=== PATIENT | female | born 1945 | race Caucasian/White ===

== ENCOUNTER 2020-03-28 12:01 | Outpatient (CLI) | payer MEDICARE, SELFPAY ==
--- NOTE | ~2020-03-28 | XR_ITS ---
EXAMINATION: XR abdomen obstructive series DATE: 03/28/2020 12:34 INDICATION: Low abdominal pain. TECHNIQUE: Upright and supine views of the abdomen on 3 radiographs were obtained. COMPARISON: Left hip radiographs 04/20/2016 FINDINGS: There are no dilated loops of bowel. There is a small volume of stool in the colon. No free intraperitoneal gas. Calcifications in the pelvis are chronic, consistent with phleboliths. IMPRESSION: 1. Normal bowel gas pattern. Reviewed, dictated and finalized at location A.
== END 2020-03-28 12:02 | disposition home or self-care (01) ==
LOC: ANHIMG 12:12
PROVIDERS: PCP Internal Medicine; Visit Provider Nurse Practitioner
DX: R10.30 Lower abdominal pain, unspecified (principal)
CPT/HCPCS: 74019

== ENCOUNTER 2020-06-13 09:47 | Outpatient (CLI) | payer MEDICARE, SELFPAY ==
--- NOTE | ~2020-06-13 | MM_ITS ---
EXAMINATION: MM screening [facility] BI w haider HISTORY: Screening mammogram TECHNIQUE: Craniocaudal and mediolateral oblique 3-D tomosynthesis images were obtained and synthetic 2-D images were generated. CAD analysis was submitted and interpreted. COMPARISON: 05/15/2019, 05/12/2018, 05/11/2017 BREAST PARENCHYMAL COMPOSITION: There are scattered areas of fibroglandular density. FINDINGS: There is no evidence of suspicious mass, calcification, or architectural distortion to sugg est malignancy in either breast. There has been no suspicious interval change. IMPRESSION: 1. No mammographic evidence of malignancy. 2. Recommend routine screening mammography in one year. BI-RADS Category 1: Negative Reviewed, dictated and finalized at location A.
--- NOTE | ~2020-06-13 | DEXA_ITS ---
Bone Density Report Name: Xochitl Lew Age: 74 Sex: Female Ethnicity: White Date of : 1945 Indication: postmenopausal; parental hip fracture; height loss; Referring Provider: Mely Lr Study: Bone densitometry was performed. Exam Date: June 13, 2020 Accession number: [id number] Bone Density: Region BMD T-score Z-score Classification AP Spine (L1-L4) 0.967 -0.7 1.7 Normal Femoral Neck (Left) 0.714 -1.2 0.8 Osteopenia Total Hip (Left) 0.849 -0.8 1.0 Normal Total Hip Bilateral Avg 0.883 -0.5 1.3 Normal Femoral Neck (Right) 0.727 -1.1 1.0 Osteopenia Total Hip (Right) 0.917 -0.2 1.6 Normal World Health Organization criteria for BMD impression classify patients as: Normal (T-score at or above -1.0), Osteopenia (T-score between -1.0 and -2.5), or Osteoporosis (T-score at or below -2.5). 10-year Fracture Risk(1): Major Osteoporotic Fracture 16% Hip Fracture 6.6% Reported Risk Factors: [place] (), Neck BMD=0.714, BMI=29.9, parental fracture (1) FRAX(R) Version 3.08. Fracture probability calculated for an untreated patient. Fracture probability may be lower if the patient has received treatment. Previous Exams: Region Exam Age BMD T-score BMD Change BMD Change Date g/cm2 vs Baseline vs Previous AP Spine(L1-L4) 06/13/2020 74 0.967 -0.7 -0.019(-2.0%) -0.019(-2.0%) 05/12/2018 72 0.986 -0.6 Total Hip(Left) 06/13/2020 74 0.849 -0.8 -0.018(-2.1%) -0.018(-2.1%) 05/12/2018 72 0.867 -0.6 Total Hip(Right) 06/13/2020 74 0.917 -0.2 0.023(2.5%) 0.023(2.5%) 05/12/2018 72 0.895 -0.4 *Denotes significance at 95% confidence level, LSC for AP Spine = 0.022 g/cm2, LSC for Total Hip = 0.027 g/cm2 Clinical Information Provided by Patient: Parent has had a hip fracture Has used the following medications: Vitamin D, Calcium Patient maximum height was 68 Menopause Age: 42 No regular weight bearing exercise Onset of menses at age 12 Number of children 0 Impression: The patient has low bone mass, based on the Left Femoral Neck T-score. The patient has an estimated ten-year risk of hip fracture of 6.6% and an estimated ten-year risk of major fracture of 16%, based on the WHO FRAX algorithm. The patient has risk factors, including: parental hip fracture. No significant bone loss was observed. Discussion: BONE DENSITY IS LOW AT ONE OR MORE SKELETAL SITES. THE PATIENT'S BMD AND CLINICAL RISK FACTORS CONTRIBUTE TO THIS
== END 2020-06-13 09:48 | disposition home or self-care (01) ==
LOC: ANHIMG 09:48
PROVIDERS: PCP Internal Medicine; Visit Provider Nurse Practitioner
DX: Z12.31 Encounter for screening mammogram for malignant neoplasm of breast (principal); Z78.0 Asymptomatic menopausal state; M85.852 Other specified disorders of bone density and structure, left thigh; M85.851 Other specified disorders of bone density and structure, right thigh
CPT/HCPCS: 77063; 77067; 77080

== ENCOUNTER 2020-08-12 22:06 | Emergency (ER) | payer MEDICARE, SELFPAY ==
--- NOTE | ~2020-08-12 | CT_ITS ---
EXAMINATION: CTA brain carotid DATE: 08/12/2020 23:33 INDICATION: Dizziness. TECHNIQUE: Computed tomographic angiography (CTA) of the head was performed without and with 100 mL O mnipaque-350 intravenous contrast. CTA of the neck was performed with intravenous contrast. Automated exposure control and iterative reconstruction technique were employed. The dose-length product was 1 619.80 mGy-cm. Maximum intensity projection and volume rendered 3D-reconstructions were created by christine espinoza technologist on a separate workstation. COMPARISON: Head CT 10/13/2004 FINDINGS: HEAD CTA: There is a 14 mm mixed solid and cystic mass involving right caudate nucleus extending into frontal horn of right lateral ventricle. Portions of the mass are hyperdense to andrews matter. There i s a developmental venous anomaly associated with the mass. There is no intracranial hemorrhage or acu te ischemic infarct. The ventricles are normal in size. There are likely changes of ocular lens repla cement surgeries. There is mild mucosal thickening in the ethmoid sinuses. Right vertebral artery is dominant. There is no significant stenosis of basilar artery or the posterior cerebral arteries. Ther e is no significant stenosis of the intracranial internal carotid arteries or anterior or middle cere bral arteries. Anterior communicating artery is normal. The posterior communicating arteries are norm al. There is no aneurysm. NECK CTA: There is mild emphysema. A calcified left lung nodule is consistent with old granulomatous disease. There are no pathologically enlarged lymph nodes. There is no significant stenosis of the ve rtebral arteries. There is plaque in the proximal internal carotid arteries. There is 0% stenosis of the proximal right internal carotid artery relative to normal distal artery lumen diameter (NASCET cr iteria). There is 0% stenosis of the proximal left internal carotid artery relative to normal distal artery lumen diameter. 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 There is moderate cervical spon dylosis. IMPRESSION: 1. 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 2. No aneurysm or significant intracranial arterial stenosis. 3. 0% stenosis of the proximal right internal carotid arteries relative to normal distal artery lume n diameters (NASCET criteria). Reviewed, dictated and finalized at location A. IMPRESSION: 1. 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 2. No aneurysm or significant intracranial arterial stenosis. 3. 0% stenosis of the proximal right internal carotid arteries relative to nor mal distal artery lumen diameters (NASCET criteria).
--- NOTE | ~2020-08-12 | XR_ITS ---
EXAMINATION: XR chest 2V 08/12/2020 23:38 INDICATION: Dizziness. Dyspnea. PROCEDURE: 2 view chest COMPARISON: No prior studies for comparison. FINDINGS: The lungs are clear. The cardiomediastinal silhouette is within normal limits. There are no pleural effusions. There is no pneumothorax suspected. IMPRESSION: 1: NO ACUTE CARDIOPULMONARY DISEASE. Reviewed, dictated and finalized at location A.
[2020-08-12 22:10] VITALS: BP 177/78; PULSE 71; RESP 18; TEMP 36.6; O2SAT 98
[2020-08-12 22:20] VITALS: PULSE 76; RESP 14; O2SAT 97
--- NOTE | 2020-08-12 22:25 | ED.DIZZY ---
HPI - Dizziness General Chief Complaint: Dizziness Stated Complaint: dizzy, weak Time Seen by Provider: 08/12/20 22:11 Source: patient History of Present Illness HPI Narrative: 74-year-old female presents to emergency department for feeling of dizziness since around 8 PM today. Patient states the room is spinning. It has improved since this started. She took some vzye-psd-eocnrzh medications to help with her symptoms. Nothing makes the dizziness worse or better. Patient denies chest pain shortness of breath. No abdominal pain. No nausea or vomiting. Related Data Home Medications Medication Instructions Recorded Confirmed ipratropium bromide 42 mcg (0.06 2 spray NASAL TID 01/01/20 08/15/20 %) nasal spray levothyroxine 100 mcg capsule 100 mcg PO DAILY 01/01/20 08/15/20 Allergies Allergy/AdvReac Type Severity Reaction Status Date / Time No Known Allergies Allergy Unknown Verified 08/15/20 14:00 Review of Systems Review of Systems: Narrative: CONSTITUTIONAL: Denies fever, chills, or sweats. EYES: Denies visual changes, redness, or discharge. ENT: Denies rhinorrhea, congestion, sore throat, or otalgia. CARDIOVASCULAR: Denies chest pain, palpitations, or edema. RESPIRATORY: Denies cough or dyspnea. GASTROINTESTINAL: Denies abdominal pain, nausea, vomiting, or diarrhea. GENITOURINARY: Denies dysuria or hematuria. SKIN: Denies rash or itching. MUSCULOSKELETAL: Denies back pain, joint pain, or myalgia. NEUROLOGIC: Denies headache, numbness, dizziness, or weakness. PSYCHIATRIC: Denies anxiety or depression. All systems reviewed & are unremarkable except as noted in HPI and below (ROS) [facility] Past Medical History Medical History (Updated 08/15/20 @ 14:21 by Malvin Arellano DO) Acute upper respiratory infection, unspecified Gastro-esophageal reflux disease without esophagitis Glucose intolerance (impaired glucose tolerance) Hypothyroidism, unspecified Lower abdominal pain, unspecified Mixed hyperlipidemia Postmenopausal Screening for breast cancer Skin lesions TMJ arthralgia Family History Family History Sibling Family history of atrial fibrillation Father Diabetes mellitus, Onset Age: 78 Family history of diabetes mellitus in first degree relative, Onset Age: 78 Sibling Diabetes mellitus Family history of lung cancer, Onset Age: 66 Family history of lymphoma, Onset Age: 73 Mother Patient's mother is , Onset Age: 94 Family history of malignant neoplasm, Onset Age: 94 Other Family history of arthritis Social History Social History (Updated 08/15/20 @ 14:04 by Torsten Carpio [facility]) Smoking packs per day: 0.5 Smoking cigarettes per day: 10.0 Years smoked: 10 Smoking pack-years: 5.00 Smoking status: Former smoker Tobacco type: cigarettes Smoking end date: 10/17/84 Alcohol intake: never Substance use: never Substance use type: does not use Exam Narrative: Exam Narrative: GENERAL: Well-appearing, well-nourished, and in no acute distress. HEAD: Normocephalic, atraumatic. EYES: PERRLA and EOMI. ENT: Nares clear, no rhinorrhea or epistaxis. Mucous membranes moist. NECK: Supple. CHEST: Clear to auscultation. No respiratory distress. HEART: Regular rate and rhythm. No murmur heard. Normal peripheral pulses. ABDOMEN: Soft, nontender, nondistended, normal active bowel sounds. EXTREMITIES: Normal range of motion. No edema. SKIN: Warm, dry, no rash. NEURO: No focal deficits. Alert and oriented x3. PSYCH: Normal mood and affect. Course Vital Signs Vital signs: Vital Signs Temperature 36.6 C 08/12/20 22:10 Pulse Rate 71 08/12/20 22:10 Respiratory Rate 18 08/12/20 22:10 Blood Pressure 177/78 H 08/12/20 22:10 Pulse Oximetry 98 08/12/20 22:10 Temperature 36.6 C 08/12/20 22:10 Pulse Rate 70 08/13/20 00:01 Respiratory Rate 15 08/13/20 00:01 Blood Pressure 151/69 H 1
--- NOTE | 2020-08-12 22:27 | ECG_ITS ---
Measurements Intervals [place] Rate: 65 P: 60 NM: 171 QRS: -1 QRSD: 98 T: 19 QT: 401 QTc: 420 Interpretive Statements SINUS RHYTHM VOLTAGE CRITERIA FOR LVH BORDERLINE ECG Electronically Signed On 08-13-2020 6:52:28 CDT by Viraj Browning D.O.
[2020-08-12 22:35] VITALS: PULSE 73; RESP 24; O2SAT 96
[2020-08-12 22:45] VITALS: PULSE 73; RESP 19; O2SAT 98
[2020-08-12 22:55] LABS: Basophils Absolute Auto 0.1 K/mm3 (0.0-0.1); Basophils Percent Auto 0.7 % (0.2-1.2); Eosinophils Absolute Auto 0.1 K/mm3 (0-0.3); Eosinophils Percent Auto 1.2 % (0-4.4); Hematocrit 42.3 % (37.0-47.0); Hemoglobin 14.5 g/dL (12.0-15.0); Immature Granulocyte Absolute 0.02 K/mm3 (0.00-0.031); Immature Granulocyte Percent A 0.2 % (0-0.5); Lymphocytes Percent Auto 16.3 % (18.3-44.2); Mean Corpuscular HGB Conc 34.3 g/dl (32-36); Mean Corpuscular Hemoglobin 32.7 pg (26-34); Mean Corpuscular Volume 95.5 fl (80-100); Mean Platelet Volume 9.7 fl (7.4-10.4); Monocytes Absolute Auto 0.7 K/mm3 (0.1-0.6); Monocytes Percent Auto 7.7 % (2.6-8.5); Neutrophils Absolute Auto 6.3 K/mm3 (1.3-6.7); Neutrophils Percent Auto 73.9 % (45.5-73.1); Platelet Count Result 233 k/mm3 (150-375); Red Blood Count 4.43 M/mm3 (4.2-5.4); Red Cell Distribution Width 12.6 % (11.5-14.5); White Blood Count 8.6 K/mm3 (4.5-10.0)
[2020-08-12 23:08] VITALS: BP 171/61; PULSE 73; RESP 16; O2SAT 96
[2020-08-12 23:10] LABS: Alanine Aminotransferase 18 U/L (4-35); Albumin Level 4.5 g/dL (3.5-5.1); Alkaline Phosphatase 55 U/L (38-126); Anion Gap 9 mmol/L (8-16); Aspartate Amino Transferase 32 U/L (14-36); Bilirubin,Total 0.4 mg/dL (0.2-1.3); Blood Urea Nitrogen 8 mg/dL (7-17); Calcium 9.5 mg/dL (8.4-10.2); Carbon Dioxide 29 mmol/L (22-30); Chloride 94 mmol/L (98-107); Estimated CRCL calculation 81 ml/min; Estimated Glomerular Filt Rate > 60; Glucose 102 mg/dL (65-105); Magnesium 2.1 mg/dL (1.6-2.3); Potassium 3.7 mmol/L (3.4-5.0); Sodium 132 mmol/L (137-145)
[2020-08-12 23:19] LABS: NT Pro B Type Natriuretic Pept 112 PG/ML (5-100); Troponin I < 0.012 ng/mL (0.000-0.034)
[2020-08-12 23:24] LABS: Add Urine Microscopic? YES; Appearance Urine Clear (Clear); Bacteria Urine Trace /hpf; Bilirubin Urine Negative (Negative); Blood Urine Negative (Negative); Color Urine Yellow (Yellow); Glucose Urine UA Negative (Negative); Ketones Urine Negative (Negative); Leukocyte Esterase Ur Negative LEU/UL (Negative); Mucus Urine Rare /lpf; Nitrate Urine Negative (Negative); Protein Urine Negative (Negative); RBC Urine 0-2 /hpf (0-2); Squamous Epithelial Cell Urine Rare /hpf (Few); Urobilinogen Urine Negative mg/dL (<2.0); WBC Urine 0-3 /hpf
[2020-08-13 00:01] VITALS: BP 151/69; PULSE 70; RESP 15; O2SAT 96
--- NOTE | 2020-08-13 00:25 | PC.NURSE ---
Pt ambulatory to bathroom to void. Continues to deny return of dizziness. States has a headache intermittently that is fleeting.
[2020-08-13 00:53] LABS: Free T4 Free Thyroxine Reflex 1.41 ng/dL (0.78-2.19)
[2020-08-13 01:36] LABS: Total Triiodothyronine (T3) 1.18 NG/ML (0.97-1.69)
== END 2020-08-13 01:15 | disposition home or self-care (01) ==
PROVIDERS: Emergency Provider Emergency Medicine; PCP Internal Medicine
DX: R42 Dizziness and giddiness (principal); K21.9 Gastro-esophageal reflux disease without esophagitis; E03.9 Hypothyroidism, unspecified; E78.2 Mixed hyperlipidemia; Z87.891 Personal history of nicotine dependence; R94.31 Abnormal electrocardiogram [ECG] [EKG]
CPT/HCPCS: 36415; 70496; 70498; 71046; 80053; 81001; 83735; 83880; 84439; 84443; 84480; 84484; 85025; 93005; 99284; Q9967

== ENCOUNTER 2021-05-04 16:07 | Outpatient (CLI) | payer MEDICARE, SELFPAY ==
--- NOTE | ~2021-05-04 | XR_ITS ---
XR chest 2V DATE: 05/04/2021 16:36 INDICATION: Cough for 2 months. Hypertension. TECHNIQUE: PA and lateral views COMPARISON: 08/12/2020 PA and lateral chest FINDINGS: Normal heart size. No hilar or mediastinal enlargement. The lungs are moderately hyperinfla [place] but clear of infiltrate or consolidation. No pleural effusion or pulmonary vascular congestion or pneumothorax. Diffuse osteopenia. IMPRESSION: Bilateral hyperinflation; no active cardiopulmonary disease Reviewed, dictated and finalized at location A.
== END 2021-05-04 16:08 | disposition home or self-care (01) ==
LOC: ANHIMG 16:17
PROVIDERS: PCP Internal Medicine; Visit Provider Internal Medicine
DX: R05 Cough (principal); R91.8 Other nonspecific abnormal finding of lung field
CPT/HCPCS: 71046

== ENCOUNTER 2021-06-16 10:01 | Outpatient (CLI) | payer MEDICARE, SELFPAY ==
--- NOTE | ~2021-06-16 | MM_ITS ---
EXAMINATION: MM screening [facility] BI w haider HISTORY: Screening TECHNIQUE: Craniocaudal and mediolateral oblique 3-D tomosynthesis images were obtained and synthetic 2-D images were generated. CAD analysis was submitted and interpreted. COMPARISON: Comparison to multiple prior studies sequentially, with oldest reviewed study dated 05/10. BREAST PARENCHYMAL COMPOSITION: There are scattered areas of fibroglandular density. FINDINGS: There is no evidence of suspicious mass, calcification, or architectural distortion to sugg est malignancy in either breast. There has been no suspicious interval change. IMPRESSION: 1. No mammographic evidence of malignancy. 2. Recommend routine screening mammography in one year. BI-RADS Category 1: Negative Reviewed, dictated and finalized at location A.
== END 2021-06-16 10:02 | disposition home or self-care (01) ==
LOC: ANHIMG 10:03
PROVIDERS: PCP Internal Medicine; Visit Provider Internal Medicine
DX: Z12.31 Encounter for screening mammogram for malignant neoplasm of breast (principal)
CPT/HCPCS: 77063; 77067

== ENCOUNTER → 2021-08-25 10:12 | Outpatient (CLI) | payer MEDICARE, SELFPAY ==
--- NOTE | ~2021-08-25 | US_ITS ---
EXAMINATION: US transvaginal DATE: 08/25/2021 10:49 INDICATION: Pelvic and perineal pain. Postmenopausal. Comparison:No prior studies for comparison. TECHNIQUE: Multiple endovaginal sonographic images of the pelvis performed. FINDINGS: The uterus measures 5.2 x 2.3 x 3 cm. The endometrial complex measures 11 mm. Endometrium i s thickened and heterogeneous. The ovaries are not visualized. There is no free fluid in the pelvis. There are no abnormal masses seen on either side. IMPRESSION: 1. Thickened endomtrial complex. The differential diagnosis includes endometrial hyperplasia, polyp a nd carcinoma. Biopsy is recommended. Reviewed, dictated and finalized at location A. TEACHER IMPRESSION: 1. Thickened endomtrial complex. The differential diagnosis includes endometria l hyperplasia, polyp and carcinoma. Biopsy is recommended.
== END ==
PROVIDERS: PCP Internal Medicine; Visit Provider Nurse Practitioner
DX: R10.2 Pelvic and perineal pain (principal)
CPT/HCPCS: 76830

== ENCOUNTER 2021-11-24 12:05 | Outpatient (CLI) | payer MEDICARE, SELFPAY ==
--- NOTE | ~2021-11-24 | XR_ITS ---
XR hip BI 2V w AP pelvis DATE: 11/24/2021 12:29 INDICATION: Bilateral hip pain, low back pain. No injury. TECHNIQUE: AP pelvis. AP and lateral views of each hip. COMPARISON: 04/20/2016 left hip FINDINGS: The pubic symphysis and sacroiliac joints are intact. No pelvic fracture or bone destructio n. Hip joint spaces are symmetric and well preserved. No fracture or dislocation, avascular necrosis or bone destruction of either hip is detected. IMPRESSION: No significant abnormality Reviewed, dictated and finalized at location A. CTOR OF ORTHOPEDICS IMPRESSION: No significant abnormality
== END 2021-11-24 12:06 | disposition home or self-care (01) ==
LOC: ANHIMG 12:09
PROVIDERS: PCP Internal Medicine; Visit Provider Internal Medicine
DX: M25.559 Pain in unspecified hip (principal)
CPT/HCPCS: 73521

== ENCOUNTER 2021-12-28 11:14 | Outpatient (CLI) | payer MEDICARE, SELFPAY ==
[2021-12-28 12:09] LABS: Anion Gap 6 mmol/L (8-16); Blood Urea Nitrogen 11 mg/dL (7-17); Calcium 8.6 mg/dL (8.4-10.2); Carbon Dioxide 27 mmol/L (22-30); Chloride 93 mmol/L (98-107); Estimated Glomerular Filt Rate > 60; Glucose 107 mg/dL (65-110); Sodium 126 mmol/L (137-145)
== END 2021-12-28 11:15 | disposition home or self-care (01) ==
LOC: ANHSURGERY 11:19
PROVIDERS: Anesthesiology; PCP Internal Medicine; Visit Provider Obstetrics & Gynecology
DX: Z01.818 Encounter for other preprocedural examination (principal); Z79.899 Other long term (current) drug therapy
CPT/HCPCS: 36415; 80048

== ENCOUNTER 2021-12-30 00:26 | Day surgery (SDC) | payer MEDICARE, SELFPAY ==
[2021-12-24 14:22] VITALS: BMI 31.8
--- NOTE | 2021-12-24 14:38 | PC.NURSE ---
Report to the Outpatient Waiting Room, entrance under the green pavilion located off [facility], at time __0600_ on date _12/30/21__. OR Time: __0730 . - You and your visitor will be asked a series of questions to screen for COVID 19 for your protection. - A mask is required within the hospital. One visitor will be allowed to accompany the patient into the hospital. Patients visitor will be instructed to remain with patient at all times or leave the building. We will allow the visitor to come back to the postoperative area when patient is ready. Preoperative COVID Testing Requirements: NONE Patients may have clear liquids (water, carbonated beverages, clear teas, apple juice) until 3 hours prior to surgery (0430 AM) with a maximum of 20 ounces. - No food from midnight until time of surgery Take the following medications with a SIP of water the morning of surgery: _LEVOTHYROXINE, METOPROLOL, LORAZEPAM IF NEEDED__ Medications to discontinue per ANESTHESIA - _ALL VITAMINS AND SUPPLEMENTS 3 DAYS PRIOR TO SURGERY, Date to take last dose_12/26/21___ Please no make-up, nail chinese, hairspray, perfume, deodorant, or body powder the day of surgery. No jewelry (including any body piercings) or valuables the day of surgery, leave them at home. Please take a shower or bath the night before, or the morning of, surgery with an antibacterial soap. Wear comfortable, loose fitting clothing. - Jewelry must be removed prior to entering the operating room. Rings and piercings that are not removed may be cut off. - The hospital will not accept responsibility for valuables. - Please leave all valuables, including medications, at home the day of surgery. If you are going home after surgery, a licensed new car driver must drive you home. - NO public transportation without another adult. - We recommend that an adult stay with you for 24 hours following discharge. - We also recommend that you do not drive, make important decision, drink alcoholic beverages, or take any drugs that were not prescribed by your health care provider for at least 24 hours after your discharge time. Follow any additional instructions given to you from your surgeon. Telephone instructions given to __PT and asked if any additional questions and then verbalized understanding. Patient advised to call surgeon office or pre surgery nurse liaison [phone] if any additional questions.
--- NOTE | 2021-12-29 13:25 | WPDANESEPPF ---
Anes - Initial Pre Proc Eval Procedure: Operation Date: 12/30/21 07:30 Proposed Procedures p Hysteroscopy, Dilation and Curettage with Possible Myosure - Xavier Coronado MD Date/Time: 12/29/21 13:25 Surgeon: Xavier Coronado MD Pre Op Diagnosis: Thickened Endometrial Stripe Patient Data Age: 76 Gender: F Height: 1.7 m Weight: 92.27 kg Allergies Allergy/AdvReac Type Severity Reaction Status Date / Time No Known Allergies Allergy Unknown Verified 12/30/21 06:19 Home Medications Medication Instructions Recorded Confirmed Type lorazepam 0.5 mg tablet 0.5 mg PO TID PRN #90 tablet 12/01/20 12/30/21 Rx cholecalciferol (vitamin D3) 50 50 mcg PO DAILY #90 tablet 12/24/20 12/30/21 Rx mcg (2,000 unit) tablet calcium citrate 1,000 mg tablet 1,000 mg PO DAILY 09/01/21 12/30/21 History coenzyme Q10 75 mg capsule 200 mg PO DAILY 09/01/21 12/30/21 History multivitamin 1 tablet PO DAILY 09/01/21 12/30/21 History niacin (inositol niacinate) 750 mg 1 cap PO DAILY 09/01/21 12/30/21 History capsule omega-3 fatty acids 1,000 mg 1,000 mg PO DAILY 09/01/21 12/30/21 History capsule levothyroxine 100 mcg PO QAM 12/24/21 12/30/21 History losartan 50 mg PO HS 12/24/21 12/30/21 History metoprolol succinate 50 mg PO QAM 12/24/21 12/30/21 History omeprazole 20 mg PO QAM 12/24/21 12/30/21 History simvastatin 20 mg HS 12/24/21 12/30/21 History triamterene-hydrochlorothiazid 1 cap PO QAM 12/24/21 12/30/21 History Patient hx anesthesia problems: none Family hx anesthesia problems: none Results Review: All pre-operative results and documents have been reviewed as part of the pre-operative evaluation. [facility] Past Medical History Medical History Anxiety Gastro-esophageal reflux disease without esophagitis Glucose intolerance (impaired glucose tolerance) Hypertension Hypothyroidism, unspecified Macular degeneration Mixed hyperlipidemia Osteopenia Skin lesions Subcutaneous cyst TMJ arthralgia Surgical History Surgical History History of tonsillectomy History of tubal ligation [place] teeth removed Family History Family History Sibling Lymphoma Lung cancer Father Diabetes mellitus, Onset Age: 78 Sibling Diabetes mellitus Mother Patient's mother is , Onset Age: 94 Hypertension Other Family history of arthritis Social History Social History Smoking packs per day: 0.5 Smoking cigarettes per day: 10.0 Years smoked: 10 Smoking pack-years: 5.00 Smoking status: Former smoker Tobacco type: cigarettes Second hand tobacco smoke exposure: No Smoking end date: 10/17/84 Alcohol intake: never Substance use: never Substance use type: does not use Living arrangements: alone Spiritual care concerns: No Anes - Eval Final PreProcedure Day of Procedure 12/29/21 13:25 Patient weight: obese Heart: regular rate and rhythm Lungs: clear to auscultation and normal air movement Airway: Mallampati scale class II Neurological: alert and oriented Last oral intake: >/= 8 hours ASA classification: III Emergent: no Anesthetic plan: proceed Anesthesia type and monitoring: general GIVS and standard monitoring Results Review: All pre-operative results and documents have been reviewed as part of the pre-operative evaluation. Informed Consent: The patient's anesthetic plan and its attendant risks and benefits were discussed with the patient/family/POA. Questions were solicited and answers provided to the satisfaction of the patient/family/POA.
[2021-12-30] MEDS: ACETAMINOPHEN 500 MG TABLET 1000 MG PO (06:30)
[2021-12-30] MEDS: LACTATED RINGERS 1,000 ML 30 ML IV CONT (06:40)
[2021-12-30 06:59] VITALS: BP 147/71; PULSE 69; RESP 16; TEMP 37; O2SAT 100
--- NOTE | 2021-12-30 07:11 | PM.IMHP ---
H&P: HPI History of Present Illness Date/Time: 12/30/21 07:11 Patient with ultrasound finding of thickened endometrial stripe. She was recommended for endometrial sampling and opted for dilation and currettage and possible hysteroscopy possible myomectomy. Denies postmenopausal bleeding. Chief Complaint: Abnormal ultrasound finding. Review of Systems Review of Systems: All systems reviewed & are unremarkable except as noted in HPI and below Cardiovascular: Cardiovascular: Reports no additional cardiovascular complaints, Denies chest pain and Denies dyspnea Respiratory: Respiratory: Reports no additional respiratory complaints and Denies dyspnea Gastrointestinal: Gastrointestinal: Reports abdominal pain, Denies change in bowel habits, Denies diarrhea, Denies nausea and Denies vomiting Genitourinary: Genitourinary: Reports pelvic pain Musculoskeletal: Musculoskeletal: Reports back pain Integumentary/Breasts: Skin/Breast: Reports system reviewed and no additional complaints, except as docu Neurologic: Reports system reviewed and no additional complaints, except as documented [facility] Past Medical History Medical History Anxiety Gastro-esophageal reflux disease without esophagitis Glucose intolerance (impaired glucose tolerance) Hypertension Hypothyroidism, unspecified Macular degeneration Mixed hyperlipidemia Osteopenia Skin lesions Subcutaneous cyst TMJ arthralgia Surgical History Surgical History History of tonsillectomy History of tubal ligation [place] teeth removed Family History Family History Sibling Lymphoma Lung cancer Father Diabetes mellitus, Onset Age: 78 Sibling Diabetes mellitus Mother Patient's mother is , Onset Age: 94 Hypertension Other Family history of arthritis Social History Social History Smoking packs per day: 0.5 Smoking cigarettes per day: 10.0 Years smoked: 10 Smoking pack-years: 5.00 Smoking status: Former smoker Tobacco type: cigarettes Second hand tobacco smoke exposure: No Smoking end date: 10/17/84 Alcohol intake: never Substance use: never Substance use type: does not use Living arrangements: alone Spiritual care concerns: No Meds Home Medications and Allergies Home Medications Medication Instructions Recorded Confirmed Type lorazepam 0.5 mg tablet 0.5 mg PO TID PRN #90 tablet 12/01/20 12/30/21 Rx cholecalciferol (vitamin D3) 50 50 mcg PO DAILY #90 tablet 12/24/20 12/30/21 Rx mcg (2,000 unit) tablet calcium citrate 1,000 mg tablet 1,000 mg PO DAILY 09/01/21 12/30/21 History coenzyme Q10 75 mg capsule 200 mg PO DAILY 09/01/21 12/30/21 History multivitamin 1 tablet PO DAILY 09/01/21 12/30/21 History niacin (inositol niacinate) 750 mg 1 cap PO DAILY 09/01/21 12/30/21 History capsule omega-3 fatty acids 1,000 mg 1,000 mg PO DAILY 09/01/21 12/30/21 History capsule levothyroxine 100 mcg PO QAM 12/24/21 12/30/21 History losartan 50 mg PO HS 12/24/21 12/30/21 History metoprolol succinate 50 mg PO QAM 12/24/21 12/30/21 History omeprazole 20 mg PO QAM 12/24/21 12/30/21 History simvastatin 20 mg HS 12/24/21 12/30/21 History triamterene-hydrochlorothiazid 1 cap PO QAM 12/24/21 12/30/21 History Allergies Allergy/AdvReac Type Severity Reaction Status Date / Time No Known Allergies Allergy Unknown Verified 12/30/21 06:19 Vital Signs Vital Signs - 24 hr 12/30/21 06:59 Temperature 98.6 F Pulse Rate 69 Respiratory Rate 16 Blood Pressure 147/71 H Pulse Oximetry 100 Exam Const: Orientation/consciousness: oriented to person and oriented to place HENMT: Head: normal to inspection Eyes: General: appearance normal, both eyes and all related structures Resp: Effort & Inspectio
--- NOTE | 2021-12-30 07:22 | WPDHPUPDATE1 ---
History and Physical Update Update Date/Time: 12/30/21 07:22 History and Physical has been reviewed, including an updated exam of the patient. There are NO changes in the patient's condition. Risks, benefits, and alternatives have been discussed and questions answered. Patient agrees to proceed with procedure.
[2021-12-30] MEDS: ceFAZolin 2 GM/D5W 50 ML 2 GM/50 ML BAG IVPB (07:30)
[2021-12-30 08:20] VITALS: BP 97/46; PULSE 61; RESP 16; O2SAT 98
--- NOTE | 2021-12-30 08:20 | W.PM.PROC2 ---
Procedure Note - Detailed Date of Procedure 12/30/21 Pre-op Diagnosis Thickened Endometrial Stripe Post-op Diagnosis Other (1. Abnormal ultrasound finding 2. Endometrial cavity lesion.) Procedure Performed 1.Hysteroscopic myosure excision of endometrial lesion. 2. Dilation and currettage. Surgeon Xavier Coronado MD Anesthesia MAC and Local Indications Ultrasound finding of thickened endometrial stripe. Findings Large what appeared to be endometrial stripe measuring approximately 2.5 cm. Description of Procedure After informed consent was obtained. She was taken to OR and adequate IV sedation administered. She was placed in low lithotomy position and prepped and draped in sterile fashion. Speculum inserted. Single tooth tenaculum placed on anterior lip of cervix. 10cc of 1% lidocaine plain was injected at cervicovaginal interface at 2,5,8, 10 oclock position. Uterus sound to 7.5 cm. The cervix was dilated to 8 beltrán dilator. The hysteroscope was inserted. A large polyp was seen near the entrance of the uterus coming from the anterior uterus. A stone forceps grasped a 2cm elongated polyp structure. Hysteroscope was inserted and there was still portion of the structure attached anteriorly. The myosure was then inserted and most of the floppy lesion was suctioned. The stone forcep was passed again and a large elongated polyp was removed. The hysteroscope was inserted and the cavity was normal. No lesion, atrophic appearing. A currettage was performed with minimal tissue. Patient tolerated procedure well. Estimated Blood Loss 5 Drains No Packing No Pathology Yes (endometrial lesion with polyps and scant currettings) Complications No immediate complications Condition Stable Disposition Floor
[2021-12-30] MEDS: ONDANSETRON INJ 4 MG/2 ML VIAL IV PUSH (08:46)
[2021-12-30 08:50] VITALS: BP 114/57; PULSE 59; RESP 16; O2SAT 98
[2021-12-30] MEDS: diphenhydrAMINE HCl INJ 50 MG/ML VIAL 12.5 MG IV PUSH (09:12)
[2021-12-30 09:20] VITALS: BP 126/55; PULSE 76; RESP 16; O2SAT 98
[2021-12-30 09:50] VITALS: BP 126/66; PULSE 53; RESP 16
[2021-12-30 10:20] VITALS: BP 144/70; PULSE 60; RESP 16
== END 2021-12-30 10:30 | disposition home or self-care (01) ==
PROVIDERS: PCP Internal Medicine; Visit Provider Obstetrics & Gynecology
PROC: 0U5B8ZZ Destruction of Endometrium, Via Natural or Artificial Opening Endoscopic (ICD-10-PCS; CPT 58563; principal; 2021-12-30 07:30)
DX: N84.0 Polyp of corpus uteri (principal); E78.2 Mixed hyperlipidemia; I10 Essential (primary) hypertension; E03.9 Hypothyroidism, unspecified; K21.9 Gastro-esophageal reflux disease without esophagitis; H35.30 Unspecified macular degeneration; F41.9 Anxiety disorder, unspecified; M85.80 Other specified disorders of bone density and structure, unspecified site; Z87.891 Personal history of nicotine dependence; E66.9 Obesity, unspecified; Z68.32 Body mass index [BMI] 32.0-32.9, adult
CPT/HCPCS: 58558; 88305; A9270; J0690; J1100; J1200; J2250; J2405; J2704; J3010; J7030; J7120

== ENCOUNTER 2022-02-10 01:26 | Day surgery (SDC) | payer MEDICARE, SELFPAY ==
[2022-02-01 12:23] VITALS: BMI 31.7
[2022-02-10 12:07] VITALS: BP 146/72; PULSE 88; RESP 16; TEMP 36.4; O2SAT 98
--- NOTE | 2022-02-10 12:13 | PM.HPGS ---
History of Present Illness History of Present Illness Consent: Risks, benefits, and alternatives have been discussed and questions answered. Patient agrees to proceed with procedure. Chief complaint: positive cologuard Narrative: Xochitl Lew is a 76 year old female Referred for colon cancer screening. She recently had performed a Cologuard test which was positive. Review of Systems Review of Systems: All systems reviewed & are unremarkable except as noted in HPI and below PMFSH Past Medical History Medical History Anxiety Gastro-esophageal reflux disease without esophagitis Glucose intolerance (impaired glucose tolerance) Hypertension Hypothyroidism, unspecified Macular degeneration Mixed hyperlipidemia Osteopenia Skin lesions Subcutaneous cyst TMJ arthralgia Surgical History Surgical History History of hysteroscopy History of tonsillectomy History of tubal ligation S/P dilation and curettage [place] teeth removed Family History Family History Sibling Lymphoma Lung cancer Father Diabetes mellitus, Onset Age: 78 Sibling Diabetes mellitus Mother Patient's mother is , Onset Age: 94 Hypertension Other Family history of arthritis Social History Social History Smoking packs per day: 0.5 Smoking cigarettes per day: 10.0 Years smoked: 10 Smoking pack-years: 5.00 Smoking status: Former smoker Tobacco type: cigarettes Second hand tobacco smoke exposure: No Smoking end date: 10/17/84 Alcohol intake: never Substance use: never Substance use type: does not use Spiritual care concerns: No Meds Home Medications and Allergies Home Medications Medication Instructions Recorded Confirmed Type lorazepam 0.5 mg tablet 0.5 mg PO TID PRN #90 tablet 12/01/20 02/10/22 Rx cholecalciferol (vitamin D3) 50 50 mcg PO DAILY #90 tablet 12/24/20 02/10/22 Rx mcg (2,000 unit) tablet calcium citrate 1,000 mg tablet 1,000 mg PO DAILY 09/01/21 02/10/22 History coenzyme Q10 75 mg capsule 200 mg PO DAILY 09/01/21 02/10/22 History multivitamin 1 tablet PO DAILY 09/01/21 02/10/22 History niacin (inositol niacinate) 750 mg 1 cap PO DAILY 09/01/21 02/10/22 History capsule omega-3 fatty acids 1,000 mg 1,000 mg PO DAILY 09/01/21 02/10/22 History capsule levothyroxine 100 mcg PO QAM 12/24/21 02/10/22 History losartan 50 mg PO HS 12/24/21 02/10/22 History metoprolol succinate 50 mg PO QAM 12/24/21 02/10/22 History omeprazole 20 mg PO QAM 12/24/21 02/10/22 History simvastatin [Zocor] 20 mg HS 12/24/21 02/10/22 History triamterene-hydrochlorothiazid 1 cap PO QAM 12/24/21 02/10/22 History Allergies Allergy/AdvReac Type Severity Reaction Status Date / Time No Known Allergies Allergy Unknown Verified 02/10/22 12:06 Vital Signs Vital Signs - 24 hr 02/10/22 12:07 Temperature 36.4 C L Pulse Rate 88 Respiratory Rate 16 Blood Pressure 146/72 H Pulse Oximetry 98 Exam Const: General: alert Orientation/consciousness: patient oriented x3 Resp: Auscultation: clear to auscultation bilaterally Cardio: Rhythm: regular rhythm GI: GI Palp: Yes Soft to palpation and No Tenderness to palpation present (GI) Neuro: General: patient oriented x3 Assessment and Plan Assessment and plan (1) Colon cancer screening: Code(s): Z12.11 - Encounter for screening for malignant neoplasm of colon Status: Acute (2) Positive colorectal cancer screening using Cologuard test: Code(s): R19.5 - Other fecal abnormalities Status: Acute Assessment and Plan: Colonoscopy with possible biopsy or polypectomy or cautery or injection of substances.
[2022-02-10] MEDS: LACTATED RINGERS 1,000 ML 150 ML IV CONT (12:24)
--- NOTE | 2022-02-10 12:36 | WPDANESEPPF ---
Anes - Initial Pre Proc Eval Procedure: Operation Date: 02/10/22 13:15 Proposed Procedures p Colonoscopy - Lucien Bains MD Date/Time: 02/10/22 12:36 Surgeon: Lucien Bains MD Pre Op Diagnosis: positive cologuard Patient Data Age: 76 Gender: F Height: 1.7 m Weight: 91.7 kg Last Vital Signs Temp 97.5 F L 02/10/22 12:07 Pulse 88 02/10/22 12:07 Resp 16 02/10/22 12:07 BP 146/72 H 02/10/22 12:07 Pulse Ox 98 02/10/22 12:07 Allergies Allergy/AdvReac Type Severity Reaction Status Date / Time No Known Allergies Allergy Unknown Verified 02/10/22 12:06 Home Medications Medication Instructions Recorded Confirmed Type lorazepam 0.5 mg tablet 0.5 mg PO TID PRN #90 tablet 12/01/20 02/10/22 Rx cholecalciferol (vitamin D3) 50 50 mcg PO DAILY #90 tablet 12/24/20 02/10/22 Rx mcg (2,000 unit) tablet calcium citrate 1,000 mg tablet 1,000 mg PO DAILY 09/01/21 02/10/22 History coenzyme Q10 75 mg capsule 200 mg PO DAILY 09/01/21 02/10/22 History multivitamin 1 tablet PO DAILY 09/01/21 02/10/22 History niacin (inositol niacinate) 750 mg 1 cap PO DAILY 09/01/21 02/10/22 History capsule omega-3 fatty acids 1,000 mg 1,000 mg PO DAILY 09/01/21 02/10/22 History capsule levothyroxine 100 mcg PO QAM 12/24/21 02/10/22 History losartan 50 mg PO HS 12/24/21 02/10/22 History metoprolol succinate 50 mg PO QAM 12/24/21 02/10/22 History omeprazole 20 mg PO QAM 12/24/21 02/10/22 History simvastatin [Zocor] 20 mg HS 12/24/21 02/10/22 History triamterene-hydrochlorothiazid 1 cap PO QAM 12/24/21 02/10/22 History Patient hx anesthesia problems: none Family hx anesthesia problems: none Results Review: All pre-operative results and documents have been reviewed as part of the pre-operative evaluation. [facility] Past Medical History Medical History Anxiety Gastro-esophageal reflux disease without esophagitis Glucose intolerance (impaired glucose tolerance) Hypertension Hypothyroidism, unspecified Macular degeneration Mixed hyperlipidemia Osteopenia Skin lesions Subcutaneous cyst TMJ arthralgia Surgical History Surgical History History of hysteroscopy History of tonsillectomy History of tubal ligation S/P dilation and curettage [place] teeth removed Family History Family History Sibling Lymphoma Lung cancer Father Diabetes mellitus, Onset Age: 78 Sibling Diabetes mellitus Mother Patient's mother is , Onset Age: 94 Hypertension Other Family history of arthritis Social History Social History Smoking packs per day: 0.5 Smoking cigarettes per day: 10.0 Years smoked: 10 Smoking pack-years: 5.00 Smoking status: Former smoker Tobacco type: cigarettes Second hand tobacco smoke exposure: No Smoking end date: 10/17/84 Alcohol intake: never Substance use: never Substance use type: does not use Spiritual care concerns: No Anes - Eval Final PreProcedure Day of Procedure 02/10/22 12:36 Patient weight: obese Heart: regular rate and rhythm Lungs: clear to auscultation Airway: Mallampati scale class II Neurological: alert and oriented Last oral intake: >/= 8 hours ASA classification: III Emergent: no Anesthetic plan: proceed Anesthesia type and monitoring: general GIVS and standard monitoring Results Review: All pre-operative results and documents have been reviewed as part of the pre-operative evaluation. Informed Consent: The patient's anesthetic plan and its attendant risks and benefits were discussed with the patient/family/POA. Questions were solicited and answers provided to the satisfaction of the patient/family/POA.
[2022-02-10 13:14] VITALS: BP 108/58; PULSE 74; RESP 18; O2SAT 99
[2022-02-10 13:24] VITALS: BP 110/60; PULSE 72; RESP 18; O2SAT 100
[2022-02-10 13:34] VITALS: BP 139/69; PULSE 70; RESP 20; O2SAT 100
== END 2022-02-10 13:52 | disposition home or self-care (01) ==
PROVIDERS: PCP Internal Medicine; Visit Provider Internal Medicine Gastroenterology
PROC: 0DJD8ZZ Inspection of Lower Intestinal Tract, Via Natural or Artificial Opening Endoscopic (ICD-10-PCS; CPT 45378; principal; 2022-02-10 13:15)
DX: Z12.11 Encounter for screening for malignant neoplasm of colon (principal); K57.30 Diverticulosis of large intestine without perforation or abscess without bleeding; R19.5 Other fecal abnormalities; K21.9 Gastro-esophageal reflux disease without esophagitis; I10 Essential (primary) hypertension; E78.2 Mixed hyperlipidemia; E03.9 Hypothyroidism, unspecified; M85.80 Other specified disorders of bone density and structure, unspecified site; H35.30 Unspecified macular degeneration; F41.9 Anxiety disorder, unspecified; Z87.891 Personal history of nicotine dependence; E66.9 Obesity, unspecified; Z68.31 Body mass index [BMI] 31.0-31.9, adult
CPT/HCPCS: G0121; J2704; J7120

== ENCOUNTER 2022-06-11 10:03 | Emergency (ER) | payer MEDICARE, SELFPAY ==
--- NOTE | ~2022-06-11 | XR_ITS ---
EXAMINATION: XR foot LT min 3V DATE: 06/11/2022 10:24 INDICATION: Left foot injury. Pain at fifth metatarsal. TECHNIQUE: 4 views of left foot were obtained. COMPARISON: None. FINDINGS: There is mild hallux valgus. No fracture. There is mild osteoarthritis of first metatarsoph alangeal joint and some of the interphalangeal joints. There are enthesophytes at the posterior and p lantar aspects of calcaneal tuberosity. IMPRESSION: 1. Mild polyarticular osteoarthritis. 2. Mild hallux valgus. Reviewed, dictated and finalized at location A.
--- NOTE | 2022-06-11 10:19 | ED.LOWEXIN ---
HPI - Extremity Injury (Lower) General Chief Complaint: Extremity Injury, Lower Stated Complaint: left foot/ankle pain Time Seen by Provider: 06/11/22 10:28 Source: patient Mode of arrival: ambulatory Limitations: no limitations History of Present Illness HPI Narrative: 76 y/o female presented for c/o left ankle and foot swelling after injury yesterday. She states the left foot rolled in when she stepped down on the stairs. Denies bruising or significant pain to the ankle. Denies numbness, tingling or weakness to the foot. Full ROM. Reports history of plantar fasciitis and has appt to f/u with regional sales executive 06/16 due to increasing pain over the last few weeks. This pain improves throughout the day. States the planar fasciitis pain is worse than the ankle pain. Has not taken anything for pain, rolls frozen water bottle for the foot. Related Data Home Medications Medication Instructions Recorded Confirmed calcium citrate 1,000 mg tablet 1,000 mg PO DAILY 09/01/21 06/11/22 coenzyme Q10 75 mg capsule (Ultra 200 mg PO DAILY 09/01/21 06/11/22 CoQ10) multivitamin (Daily Multi-Vitamin 1 tablet PO DAILY 09/01/21 06/11/22 tablet) niacin (inositol niacinate) 750 mg 1 cap PO DAILY 09/01/21 06/11/22 capsule (Niacin Flush Free) omega-3 fatty acids 1,000 mg 1,000 mg PO DAILY 09/01/21 06/11/22 capsule Allergies Allergy/AdvReac Type Severity Reaction Status Date / Time No Known Allergies Allergy Unknown Verified 05/18/22 12:57 Review of Systems Review of Systems: CONSTITUTIONAL: Denies body aches, fever, chills CARDIOVASCULAR: Denies chest pain, palpitations, or edema. RESPIRATORY: Denies cough or dyspnea. SKIN: Denies rash, itching, or wounds. MUSCULOSKELETAL: Reports foot pain and ankle swelling NEUROLOGIC: Denies headache, numbness, tingling, or weakness. All systems reviewed & are unremarkable except as noted in HPI and below PMFSH Past Medical History Medical History Anxiety Gastro-esophageal reflux disease without esophagitis Glucose intolerance (impaired glucose tolerance) Hypertension Hypothyroidism, unspecified Macular degeneration Mixed hyperlipidemia Osteopenia Skin lesions Subcutaneous cyst TMJ arthralgia Surgical History Surgical History History of hysteroscopy History of tonsillectomy History of tubal ligation S/P dilation and curettage [place] teeth removed Family History Family History Sibling Lymphoma Lung cancer Father Diabetes mellitus, Onset Age: 78 Sibling Diabetes mellitus Mother Patient's mother is , Onset Age: 94 Hypertension Other Family history of arthritis Social History Social History Smoking packs per day: 0.5 Smoking cigarettes per day: 10.0 Years smoked: 10 Smoking pack-years: 5.00 Smoking status: Former smoker Tobacco type: cigarettes Second hand tobacco smoke exposure: No Smoking end date: 10/17/84 Alcohol intake: never Substance use: never Substance use type: does not use Spiritual care concerns: No Comments At time of signature, I have reviewed and agree with nursing past medical, surgical, social and family history unless otherwise noted. Please see nursing chart for further information. There is no relevant family history pertinent to the presenting complaint Exam Narrative: GENERAL: Well-appearing CHEST: Speaks in full sentences. No respiratory distress. HEART: Regular rate and rhythm. Normal and equal peripheral pulses. EXTREMITIES: Left foot and ankle moderate swelling without erythema or bruising; foot has normal strength and sensation, normal range of motion No point tenderness. Reports pain to plantar surface of foot. No open wounds, or obvious deformity; pulse palpable an
[2022-06-11 10:25] VITALS: BP 153/68; PULSE 75; RESP 16; TEMP 37.3; O2SAT 98
== END 2022-06-11 10:51 | disposition home or self-care (01) ==
PROVIDERS: Emergency Provider Nurse Practitioner Family; PCP Internal Medicine
DX: S93.402A Sprain of unspecified ligament of left ankle, initial encounter (principal); S96.912A Strain of unspecified muscle and tendon at ankle and foot level, left foot, initial encounter; X50.9XXA Other and unspecified overexertion or strenuous movements or postures, initial encounter; K21.9 Gastro-esophageal reflux disease without esophagitis; R73.02 Impaired glucose tolerance (oral); I10 Essential (primary) hypertension; E03.9 Hypothyroidism, unspecified; H35.30 Unspecified macular degeneration; E78.2 Mixed hyperlipidemia; M81.0 Age-related osteoporosis without current pathological fracture; F41.9 Anxiety disorder, unspecified
CPT/HCPCS: 73630; 99213; G0463

== ENCOUNTER 2022-08-05 13:53 | Outpatient (CLI) | payer MEDICARE, SELFPAY ==
--- NOTE | ~2022-08-05 | MM_ITS ---
EXAMINATION: MM screening marv BI w ahider HISTORY: Screening TECHNIQUE: Craniocaudal and mediolateral oblique 3-D tomosynthesis images were obtained and synthetic 2-D images were generated. CAD analysis was submitted and interpreted. COMPARISON: Comparison to multiple prior studies sequentially, with oldest reviewed study dated 05/11. BREAST PARENCHYMAL COMPOSITION: Breast composed of scattered areas of fibroglandular density FINDINGS: There is no evidence of suspicious mass, calcification, or architectural distortion to sugg est malignancy in either breast. There has been no suspicious interval change. IMPRESSION: 1. No mammographic evidence of malignancy. 2. Recommend routine screening mammography in one year. BI-RADS Category 1: Negative Reviewed, dictated and finalized at location A.
--- NOTE | ~2022-08-05 | DEXA_ITS ---
Bone Density Report Name: KANE ANAND Age: 76 Sex: Female Ethnicity: White Date of : 1945 Indication: postmenopausal; screening for osteoporosis; parental hip fracture; height loss; Referring Provider: ALIRIO CLARK Study: Bone densitometry was performed. Exam Date: August 05, 2022 Accession number: [id number] Bone Density: Region BMD T-score Z-score Classification AP Spine(L1-L4) 0.996 -0.5 2.0 Normal Femoral Neck (Left) 0.728 -1.1 1.1 Osteopenia Total Hip (Left) 0.870 -0.6 1.3 Normal Femoral Neck (Right) 0.730 -1.1 1.1 Osteopenia Total Hip (Right) 0.893 -0.4 1.5 Normal Total Hip Mean 0.882 -0.5 1.4 Normal World Health Organization criteria for BMD impression classify patients as: Normal (T-score at or above -1.0), Osteopenia (T-score between -1.0 and -2.5), or Osteoporosis (T-score at or below -2.5). 10-year Fracture Risk(1): Major Osteoporotic Fracture 16% Hip Fracture 7.4% Reported Risk Factors: [place] (), Neck BMD=0.728, BMI=32.6, parental fracture (1) FRAX(R) Version 3.08. Fracture probability calculated for an untreated patient. Fracture probability may be lower if the patient has received treatment. Previous Exams: Region Exam Age BMD T-score BMD Change BMD Change Date g/cm2 vs Baseline vs Previous AP Spine (L1-L4) 08/05/2022 76 0.996 -0.5 0.010 (1.0%) 0.029 (3.0%)* 06/13/2020 74 0.967 -0.7 -0.019 (-2.0%) -0.019 (-2.0%) 05/12/2018 72 0.986 -0.6 Total Hip(Left) 08/05/2022 76 0.870 -0.6 0.003 (0.3%) 0.021 (2.5%) 06/13/2020 74 0.849 -0.8 -0.018 (-2.1%) -0.018 (-2.1%) 05/12/2018 72 0.867 -0.6 Total Hip(Right) 08/05/2022 76 0.893 -0.4 -0.001 (-0.1%) -0.024 (-2.6%) 06/13/2020 74 0.917 -0.2 0.023 (2.5%) 0.023 (2.5%) 05/12/2018 72 0.895 -0.4 *Denotes significance at 95% confidence level, LSC for AP Spine = 0.022 g/cm2, LSC for Total Hip = 0.027 g/cm2 Clinical Information Provided by Patient: Parent has had a hip fracture Has used the following medications: Vitamin D, Calcium Patient maximum height was 67.5 Menopause Age: 42 No regular weight bearing exercise Onset of menses at age 12 Number of children 0 Impression: The patient has low bone mass, based on the Left Femoral Neck T-score. The patient has an estimated ten-year risk of hip fracture of 7.4% and an estimated ten-year risk of major fracture of 16%, based on the WHO FRAX
== END 2022-08-05 13:54 | disposition home or self-care (01) ==
PROVIDERS: PCP Internal Medicine; Visit Provider Nurse Practitioner
DX: Z12.31 Encounter for screening mammogram for malignant neoplasm of breast (principal); Z78.0 Asymptomatic menopausal state; M85.89 Other specified disorders of bone density and structure, multiple sites
CPT/HCPCS: 77063; 77067; 77080

== ENCOUNTER 2022-08-28 15:56 | Emergency (ER) | payer MEDICARE, SELFPAY ==
[2022-08-28] VITALS (7 sets, daily range): BP systolic 148–176; BP diastolic 65–79; PULSE 64–90; RESP 16–22; TEMP 36.4; O2SAT 98–99
--- NOTE | ~2022-08-28 | XR_ITS ---
XR chest 2V DATE: 08/28/2022 17:17 INDICATION: Chest pain for 2 days. Midsternal pain. TECHNIQUE: PA and lateral views COMPARISON: 05/04/2021 PA and lateral chest FINDINGS: Heart size is within normal limits. Aortic arch calcification. No hilar or mediastinal enla rgement. Moderate bilateral hyperinflation. No pulmonary infiltrate or consolidation, pleural effusion or pulm onary vascular congestion or pneumothorax. Osteopenia. IMPRESSION: Bilateral hyperinflation; no active cardiopulmonary disease or significant change since Reviewed, dictated and finalized at location A. 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
--- NOTE | ~2022-08-28 | CT_ITS ---
EXAMINATION: CT abdomen pelvis w con DATE: 08/28/2022 18:23 INDICATION: Upper abdominal pain for one week, worse with movement. TECHNIQUE: Computed tomography (CT) of the abdomen and pelvis was performed with 100 CC Omnipaque 350 intravenous contrast. Automated exposure control and iterative reconstruction technique were employe d. Exam dose: 913.26 mGy-cm total exam DLP. COMPARISON: 03/28/2020 obstructive series FINDINGS: Emphysematous changes are noted in the lower lung zones. There is peripheral septal soft tissue thickening and cystic change which may be due to usual interst itial pneumonia type interstitial fibrosis. Normal heart size. No pericardial or pleural effusion. Small sliding hiatal hernia. 7 mm lateral segment left hepatic cyst. The liver is otherwise unremarkable. The gallbladder is prese nt. No bile duct or pancreatic duct dilatation. No pancreatic mass lesion or calcification. Normal splenic size with occasional splenic calcified granulomas. Normal morphology of the adrenal glands. No renal mass lesion or urinary tract calculus or hydroureteronephrosis. The urinary bladder, uterus and adnexal areas are unremarkable. There is atherosclerotic calcification of the abdominal aorta but no aneurysm no intraperitoneal or r etroperitoneal or pelvic mass lesion or adenopathy or ascites. Normal appendix. Numerous diverticula of the sigmoid:; No CT evidence of diverticulitis. No bowel obstruction, bowel w all thickening, pneumatosis or intraperitoneal free air. Small fat-containing umbilical hernia. No suspicious osteolytic or osteoblastic lesions. IMPRESSION: Emphysema Small sliding hiatal hernia 7 mm left hepatic cyst Diverticulosis of the sigmoid colon; no CT evidence of diverticulitis Reviewed, dictated and finalized at [facility]. Reviewed, dictated and finalized at location [facility]. 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
--- NOTE | 2022-08-28 16:59 | ECG_ITS ---
Measurements Intervals [place] Rate: 66 P: 51 [place]: 177 QRS: 11 QRSD: 101 T: 39 QT: 391 QTc: 412 Interpretive Statements SINUS RHYTHM MINIMAL Q WAVES- INFERIOR LEADS BORDERLINE ST ABNORMALITY- ANTEROLATERAL LEADS BASELINE ARTIFACT- I, II, III, AVR, AVL, AVF, V3 BORDERLINE ECG COMPARED TO ECG 08/12/2020 22:14:48 NO SIGNIFICANT CHANGES Electronically Signed On 08-30-2022 7:48:22 EDUCATION ANALYST by Viraj Browning D.O.
--- NOTE | 2022-08-28 17:10 | ED.CHESTPAIN ---
HPI - Chest Pain General Chief Complaint: Unspecified Stated Complaint: epigastric pain Time Seen by Provider: 08/28/22 16:53 Source: patient and RN notes reviewed Mode of arrival: ambulatory Limitations: no limitations History of Present Illness HPI narrative: This is a 76 year old female with history of hypertension, hyperlipidemia, GERD who presents for evaluation of epigastric, midsternal pain that started 1 week ago. She reports she noticed this pain when she was lifting 5 pound weights. She thought she pulled a muscle so she stopped exercising. She reports her pain did not initially improve at that time. She describes her pain has sharp pain that intermittently radiates across her abdomen. Her pain seems to be worse with stretching and certain movements. She has not tried anything for her pain. She last had pain when she was in the waiting room, and she denies any pain currently. She denies associated nausea, vomiting, diaphoresis, cough , fever or chills. She has shortness of breath when her pain is severe. She had normal stress test years ago Related Data Home Medications Medication Instructions Recorded Confirmed calcium citrate 1,000 mg tablet 1,000 mg PO DAILY 09/01/21 06/11/22 coenzyme Q10 75 mg capsule (Ultra 200 mg PO DAILY 09/01/21 06/11/22 CoQ10) multivitamin (Daily Multi-Vitamin 1 tablet PO DAILY 09/01/21 06/11/22 tablet) niacin (inositol niacinate) 750 mg 1 cap PO DAILY 09/01/21 06/11/22 capsule (Niacin Flush Free) omega-3 fatty acids 1,000 mg 1,000 mg PO DAILY 09/01/21 06/11/22 capsule Allergies Allergy/AdvReac Type Severity Reaction Status Date / Time No Known Allergies Allergy Unknown Verified 05/18/22 12:57 Review of Systems Review of Systems: CONSTITUTIONAL: Denies fever, chills, or sweats. EYES: Denies visual changes, redness, or discharge. ENT: Denies rhinorrhea, congestion, sore throat, or otalgia. CARDIOVASCULAR: Denies chest pain, palpitations, or edema. RESPIRATORY: Denies cough . GASTROINTESTINAL: Denies nausea, vomiting, or diarrhea. GENITOURINARY: Denies dysuria or hematuria. SKIN: Denies rash or itching. MUSCULOSKELETAL: Denies back pain, joint pain, or myalgia. NEUROLOGIC: Denies headache, numbness, or weakness. PSYCHIATRIC: Denies anxiety or depression. All systems reviewed & are unremarkable except as noted in HPI and below PMFSH Past Medical History Medical History Anxiety Gastro-esophageal reflux disease without esophagitis Glucose intolerance (impaired glucose tolerance) Hypertension Hypothyroidism, unspecified Macular degeneration Mixed hyperlipidemia Osteopenia Skin lesions Subcutaneous cyst TMJ arthralgia Surgical History Surgical History History of hysteroscopy History of tonsillectomy History of tubal ligation S/P dilation and curettage [place] teeth removed Family History Family History Sibling Lymphoma Lung cancer Father Diabetes mellitus, Onset Age: 78 Sibling Diabetes mellitus Mother Patient's mother is , Onset Age: 94 Hypertension Other Family history of arthritis Social History Social History Smoking packs per day: 0.5 Smoking cigarettes per day: 10.0 Years smoked: 10 Smoking pack-years: 5.00 Smoking status: Former smoker Tobacco type: cigarettes Second hand tobacco smoke exposure: No Smoking end date: 10/17/84 Alcohol intake: never Substance use: never Substance use type: does not use Spiritual care concerns: No Exam Narrative: GENERAL: Well-appearing, well-nourished, and in no acute distress. HEAD: Normocephalic, atraumatic EYES: PERRLA and EOMI, conjunctiva clear without discharge THROAT:Mucous membranes moist, Oropharynx normal without
[2022-08-28 17:11] LABS: Basophils Absolute Auto 0.1 K/mm3 (0.0-0.1); Basophils Percent Auto 0.7 % (0.2-1.2); Eosinophils Absolute Auto 0.1 K/mm3 (0-0.3); Eosinophils Percent Auto 1.2 % (0-4.4); Hematocrit 41.7 % (37.0-47.0); Hemoglobin 14.1 g/dL (12.0-15.0); Immature Granulocyte Absolute 0.02 K/mm3 (0.00-0.031); Immature Granulocyte Percent A 0.2 % (0-0.5); Lymphocytes Absolute Auto 1.56 K/mm3 (0.9-3.2); Lymphocytes Percent Auto 15.7 % (18.3-44.2); Mean Corpuscular HGB Conc 33.8 g/dl (32-36); Mean Corpuscular Hemoglobin 31.7 pg (26-34); Mean Corpuscular Volume 93.7 fl (80-100); Mean Platelet Volume 9.5 fl (7.4-10.4); Monocytes Absolute Auto 0.7 K/mm3 (0.1-0.6); Neutrophils Absolute Auto 7.5 K/mm3 (1.3-6.7); Neutrophils Percent Auto 75.2 % (45.5-73.1); Platelet Count Result 277 k/mm3 (150-375); Red Blood Count 4.45 M/mm3 (4.2-5.4); Red Cell Distribution Width 12.9 % (11.5-14.5); White Blood Count 9.9 K/mm3 (4.5-10.0)
[2022-08-28 17:24] LABS: Alanine Aminotransferase 23 U/L (6-35); Albumin Level 4.8 g/dL (3.5-5.1); Alkaline Phosphatase 53 U/L (38-126); Anion Gap 12 mmol/L (8-16); Aspartate Amino Transferase 41 U/L (14-36); Bilirubin,Total 0.5 mg/dL (0.2-1.3); Blood Urea Nitrogen 12 mg/dL (7-17); Calcium 9.3 mg/dL (8.4-10.2); Carbon Dioxide 27 mmol/L (22-30); Chloride 94 mmol/L (98-107); Estimated CRCL calculation 81 ml/min; Estimated Glomerular Filt Rate > 60; Glucose 114 mg/dL (65-110); Lipase 96 U/L (23-300); Potassium 4.2 mmol/L (3.4-5.0); Sodium 133 mmol/L (137-145)
[2022-08-28 17:25] LABS: Prothrombin Time 13.2 Seconds (11.1-14.7)
[2022-08-28 17:26] LABS: Partial Thromboplastin Time 26.9 SECONDS (22.3-36.8)
[2022-08-28 17:36] LABS: Troponin I < 0.012 ng/mL (0.000-0.034)
--- NOTE | 2022-08-28 19:23 | PC.NURSE ---
ASsumed care of pt at this time. Pt alert and upright on stretcher. Pain 0/10 at this time, only with movement
[2022-08-28 20:44] LABS: Troponin I 0.013 ng/mL (0.000-0.034)
== END 2022-08-28 20:58 | disposition home or self-care (01) ==
PROVIDERS: Emergency Provider General Practice; PCP Internal Medicine
DX: R10.13 Epigastric pain (principal); I10 Essential (primary) hypertension; E03.9 Hypothyroidism, unspecified; E78.2 Mixed hyperlipidemia; Z87.891 Personal history of nicotine dependence
CPT/HCPCS: 36415; 71046; 74177; 80053; 83690; 84484; 85025; 85610; 85730; 93005; 99284; Q9967

== ENCOUNTER 2023-04-03 19:32 | Emergency (ER) | payer MEDICARE, SELFPAY ==
[2023-04-03 19:50] VITALS: BP 210/79; PULSE 84; RESP 17; TEMP 36.4; O2SAT 97
--- NOTE | 2023-04-03 21:13 | ED.GENADULT ---
HPI - General Adult General Chief complaint: Allergic Reaction Stated complaint: allergic reaction Time Seen by Provider: 04/03/23 20:37 History of Present Illness HPI narrative: 77-year-old female presented to the emergency department for evaluation of what she suspects is an allergic reaction. Patient states that she was changing an LED light bulb at home and then states she had a flushed feeling pass over from her head and then passed through her entire body. Patient denied any chest pain or shortness of breath with this. Patient denies any difficulty breathing or swallowing. Patient states her entire body became red and flushed. Patient did have a similar reaction when taking niacin but patient denies any new medication, new soaps or detergents or any other changes. Patient states the only change was that she touched a light bulb. Patient states that this flushed feeling happened while she was changing a light bulb. Patient denied noticing any breaks in the label. Patient has never had this reaction before. Patient states that the symptoms have currently resolved and patient has no complaints at this time. Related Data Home Medications Medication Instructions Recorded Confirmed calcium citrate 1,000 mg tablet 1,000 mg PO DAILY 09/01/21 06/11/22 coenzyme Q10 75 mg capsule (Ultra 200 mg PO DAILY 09/01/21 06/11/22 CoQ10) multivitamin (Daily Multi-Vitamin 1 tablet PO DAILY 09/01/21 06/11/22 tablet) niacin (inositol niacinate) 750 mg 1 cap PO DAILY 09/01/21 06/11/22 capsule (Niacin Flush Free) omega-3 fatty acids 1,000 mg 1,000 mg PO DAILY 09/01/21 06/11/22 capsule Allergies Allergy/AdvReac Type Severity Reaction Status Date / Time No Known Allergies Allergy Unknown Verified 04/03/23 20:37 Review of Systems Review of Systems: All systems reviewed & are unremarkable except as noted in HPI and below PMFSH Past Medical History Medical History (Updated 04/04/23 @ 00:00 by Clemencia Damon) Anxiety Gastro-esophageal reflux disease without esophagitis Glucose intolerance (impaired glucose tolerance) Hypertension Hypothyroidism, unspecified Macular degeneration Mixed hyperlipidemia Osteopenia Skin lesions Subcutaneous cyst TMJ arthralgia Surgical History Surgical History (Reviewed 12/13/22 @ 12:58 by Melanie Washington [facility], 1928–1983) History of hysteroscopy History of tonsillectomy History of tubal ligation S/P dilation and curettage [place] teeth removed Family History Family History Sibling Lymphoma Lung cancer Father Diabetes mellitus, Onset Age: 78 Sibling Diabetes mellitus Mother Patient's mother is , Onset Age: 94 Hypertension Other Family history of arthritis Social History Social History Smoking packs per day: 0.5 Smoking cigarettes per day: 10.0 Years smoked: 10 Smoking pack-years: 5.00 Smoking status: Former smoker Tobacco type: cigarettes Second hand tobacco smoke exposure: No Smoking end date: 10/17/84 Alcohol intake: never Substance use: never Substance use type: does not use Lack of Transportation: No Lack of Food: Never True Current Housing: I Have Housing Concerned About Future Housing: No Difficulty Paying Gas/Electric Bills: No Difficulty Paying for Meds: No Currently Unemployed: No Difficulty w/ Childcare or Family Care: No Living arrangements: alone Spiritual care concerns: No Exam Narrative: APPEARANCE: Well appearing, no pain, no distress, well-nourished. HEAD: normocephalic, atraumatic. EYES: PERRLA/EOMI, conjunctivae clear. NOSE: Normal no drainage NECK: Supple. No adenopathy, no masses. RESPIRATORY: Airway patent, respirations nonlabored. Clear to auscultation bilaterally, no rales, rhonchi, wheezing. CARDIOVASCULAR: Regular rate and rhythm without murmurs rubs or gallops. ABDOMINAL
[2023-04-03 21:20] VITALS: BP 191/85; PULSE 66; RESP 18; O2SAT 100
== END 2023-04-03 21:30 | disposition home or self-care (01) ==
PROVIDERS: Emergency Provider Emergency Medicine; PCP Emergency Medicine
DX: R23.2 Flushing (principal); I10 Essential (primary) hypertension; E78.2 Mixed hyperlipidemia; E03.9 Hypothyroidism, unspecified; H35.30 Unspecified macular degeneration; K21.9 Gastro-esophageal reflux disease without esophagitis; M85.80 Other specified disorders of bone density and structure, unspecified site; Z87.891 Personal history of nicotine dependence
CPT/HCPCS: 99281

== ENCOUNTER → 2023-08-11 14:17 | Outpatient (CLI) | payer MEDICARE, SELFPAY ==
--- NOTE | ~2023-08-11 | MM_ITS ---
EXAMINATION: MM screening [facility] BI w haider HISTORY: Screening mammogram TECHNIQUE: Craniocaudal and mediolateral oblique 3-D tomosynthesis images were obtained and synthetic 2-D images were generated. CAD analysis was submitted and interpreted. COMPARISON: 08/05/2022, 06/16/2021, 06/05/2020 bilateral screening mammogram examinations BREAST PARENCHYMAL COMPOSITION: There are scattered areas of fibroglandular density. FINDINGS: There is no evidence of suspicious mass, calcification, or architectural distortion to sugg est malignancy in either breast. There has been no suspicious interval change. IMPRESSION: 1. No mammographic evidence of malignancy. 2. Recommend routine screening mammography in one year. BI-RADS Category 1: Negative Reviewed, dictated and finalized at location [facility].
== END ==
PROVIDERS: PCP Emergency Medicine; Visit Provider Emergency Medicine
DX: Z12.31 Encounter for screening mammogram for malignant neoplasm of breast (principal)
CPT/HCPCS: 77063; 77067

== ENCOUNTER 2023-12-15 08:33 | Outpatient (CLI) | payer MEDICARE, SELFPAY ==
[2023-12-15 12:44] LABS: Alanine Aminotransferase 19 U/L (6-35); Albumin Level 4.3 g/dL (3.5-5.1); Alkaline Phosphatase 57 U/L (38-126); Anion Gap 7 mmol/L (8-16); Aspartate Amino Transferase 36 U/L (14-36); Bilirubin,Total 0.6 mg/dL (0.2-1.3); Blood Urea Nitrogen 8 mg/dL (7-17); Calcium 9.7 mg/dL (8.4-10.2); Carbon Dioxide 29 mmol/L (22-30); Chloride 97 mmol/L (98-107); Cholesterol 165 mg/dL (0-200); Estimated Glomerular Filt Rate > 60; Glucose 97 mg/dL (65-110); HDL Direct 66 mg/dL; Potassium 4.2 mmol/L (3.4-5.0); Sodium 133 mmol/L (137-145); Triglycerides 91 mg/dL (<150)
[2023-12-15 12:55] LABS: LDL Cholesterol Direct 82 mg/dL
[2023-12-15 13:03] LABS: Free T4 Free Thyroxine 1.51 ng/mL (0.78-2.19)
[2023-12-15 13:12] LABS: Total Triiodothyronine (T3) 1.15 NG/ML (0.97-1.69)
[2023-12-15 13:19] LABS: Hemoglobin A1C 5.8 % (<5.7)
== END 2023-12-15 08:34 | disposition home or self-care (01) ==
LOC: ANHGOSHLAB 08:35
PROVIDERS: PCP Emergency Medicine; Visit Provider Emergency Medicine
DX: E03.9 Hypothyroidism, unspecified (principal); E78.2 Mixed hyperlipidemia; R73.02 Impaired glucose tolerance (oral)
CPT/HCPCS: 36415; 80053; 80061; 83036; 84439; 84443; 84480

== ENCOUNTER 2024-05-21 13:10 | Outpatient (CLI) | payer MEDICARE, SELFPAY ==
--- NOTE | ~2024-05-21 | MR_ITS ---
MRI of the left foot CLINICAL HISTORY: Metatarsalgia TECHNIQUE: Sagittal T1-weighted and STIR images, axial T1-weighted and T2 fat-sat images, and coronal T1-weighted and T2 fat-sat images were performed. Following intravenous administration of 18 cc Mult iHance gadolinium, T1-weighted fat-sat imaging was performed in the axial, coronal, and sagittal plan es. FINDINGS: Bone marrow signals are unremarkable. No fracture or bone marrow edema seen. No evidence fo r osteomyelitis. Joint spaces are well preserved. No significant joint effusion evident. Intrinsic musculature of the foot is unremarkable. No intermetatarsal bursitis or Mon's neuroma ev ident. There is dorsal subcutaneous soft tissue edema over the forefoot, nonspecific. No focal fluid collection or soft tissue mass seen. Flexor and extensor tendons are intact. Plantar fascia intact. No abnormal postcontrast enhancement identified. IMPRESSION: Nonspecific mild dorsal subcutaneous soft tissue edema of the forefoot. No other significant findings. Reviewed, dictated and finalized at [facility].
== END 2024-05-21 13:11 | disposition home or self-care (01) ==
PROVIDERS: PCP Emergency Medicine; Visit Provider Podiatrist Foot & Ankle Surgery
DX: G57.62 Lesion of plantar nerve, left lower limb (principal)
CPT/HCPCS: 73720; 93306; A9577

== ENCOUNTER 2024-05-21 13:17 | Outpatient (CLI) | payer MEDICARE, SELFPAY ==
--- NOTE | 2024-05-21 14:26 | ECHO_ITS ---
Patient Info Name: Xochitl Lew Age: 78 years : 1945 Gender: Female Ht: 67 in Wt: 200 lbs BSA: 2.10 m2 HR: 68 bpm BP: 165 / 88 mmHg Heart Rhythm: Sinus Rhythm Technical Quality: Fair Exam Date: 05/21/2024 2:38 PM Exam Location: Echo Lab Patient Status: Outpatient Admit Date: 05/21/2024 Staff Ordering Physician: Dante Delgado MD Travel Registered Nurse Pacu: Kim Oliver RDCS Attending Provider: Dante Delgado MD Referring Physician: Danny LR; Exam Type: CA echo doppler color flow Study Info Indications I10 - Essential (primary) hypertension Complete two-dimensional, color flow and Doppler transthoracic echocardiogram is performed. Summary 1. Complete two-dimensional, color flow and Doppler transthoracic echocardiogram is performed. 2. Left ventricular chamber dimension is normal. 3. Left ventricular systolic function is normal, estimated at 65-70%. 4. The left ventricular diastolic function is grade I diastolic dysfunction. 5. E/e' 10 is mildly elevated. 6. There is trace tricuspid valve regurgitation. 7. No pulmonary hypertension, estimated pulmonary arterial systolic pressure is 30 mmHg. 8. There is trace pulmonic regurgitation. Left Ventricle E/e' 10 is mildly elevated. Left ventricular chamber dimension is normal. Left ventricular systolic function is normal, estimated at 65-70%. The left ventricular diastolic function is grade I diastolic dysfunction. Right Ventricle Right ventricular systolic function is normal and with normal TAPSE 2.6 cm.. Right ventricular chamber dimension is normal. Left Atria Left atrial chamber dimension is normal. Right Atria Right atrial chamber dimension is normal. Aortic Valve The aortic valve is trileaflet. There is no aortic valve stenosis. There is no aortic valve regurgitation. Pulmonic Valve There is trace pulmonic regurgitation. Mitral Valve There is no mitral valve stenosis. There is no mitral valve regurgitation. Tricuspid Valve There is trace tricuspid valve regurgitation. No pulmonary hypertension, estimated pulmonary arterial systolic pressure is 30 mmHg. Pericardium/Pleural There is no pericardial effusion. Inferior Vena Cava Normal inferior vena cava with >50% collapse upon inspiration consistent with normal right atrial pressure, 5 mmHg. Aorta The aortic root size at the sinus of Valsalva is normal. Left Ventricular Outflow Tract Name Value Normal LVOT 2D LVOT Diameter 2.0 cm LVOT Doppler LVOT Peak Gradient 5 mmHg LVOT Mean Gradient 2 mmHg LVOT VTI 26 cm LVOT VTI/AV VTI Ratio 0.9 LVOT Stroke Volume 81 ml LVOT CO 4.9 l/min LVOT CI 2.3 l/min/m2 Pulmonic Valve Name Value Normal RVOT Doppler RVOT Peak Gradient 1 mmHg PV Doppler
== END 2024-05-21 13:18 | disposition home or self-care (01) ==
LOC: ANHCARD 13:18
PROVIDERS: PCP Emergency Medicine; Visit Provider Emergency Medicine
DX: I11.9 Hypertensive heart disease without heart failure (principal)
CPT/HCPCS: 93306

== ENCOUNTER 2024-08-13 13:35 | Outpatient (CLI) | payer MEDICARE, SELFPAY ==
--- NOTE | ~2024-08-13 | MM_ITS ---
EXAMINATION: MM screening [facility] BI w haider HISTORY: Screening mammogram TECHNIQUE: Craniocaudal and mediolateral oblique 3-D tomosynthesis images were obtained and synthetic 2-D images were generated. CAD analysis was submitted and interpreted. COMPARISON: 08/11/2023, 08/05/2022, 06/16/2021 BREAST PARENCHYMAL COMPOSITION:Not Dense. There are scattered areas of fibroglandular density. FINDINGS: No suspicious mass, calcification, or architectural distortion are identified in either [place] ast to suggest malignancy. There has been no suspicious interval change. IMPRESSION: No mammographic evidence of malignancy. Recommend routine screening mammography in one year. BI-RADS Category 1: Negative Reviewed, dictated and finalized at location .
--- NOTE | ~2024-08-13 | DEXA_ITS ---
Bone Density Report Name: KANE ANAND Age: 78 Sex: Female Ethnicity: White Date of : 1945 Indication: postmenopausal; screening for osteoporosis; parental hip fracture; height loss; Referring Provider: ALIRIO CLARK Study: Bone densitometry was performed. Exam Date: August 13, 2024 Accession number: [id number] Bone Density: Region BMD T-score Z-score Classification AP Spine(L1-L4) 0.945 -0.9 1.7 Normal Femoral Neck (Left) 0.668 -1.6 0.6 Osteopenia Total Hip (Left) 0.821 -1.0 1.0 Normal Femoral Neck (Right) 0.710 -1.2 1.0 Osteopenia Total Hip (Right) 0.898 -0.4 1.6 Normal Total Hip Mean 0.860 -0.7 1.3 Normal World Health Organization criteria for BMD impression classify patients as: Normal (T-score at or above -1.0), Osteopenia (T-score between -1.0 and -2.5), or Osteoporosis (T-score at or below -2.5). 10-year Fracture Risk(1): Major Osteoporotic Fracture 22% Hip Fracture 13% Reported Risk Factors: [place] (), Neck BMD=0.668, BMI=32.0, parental fracture (1) FRAX(R) Version 3.08. Fracture probability calculated for an untreated patient. Fracture probability may be lower if the patient has received treatment. Previous Exams: Region Exam Age BMD T-score BMD Change BMD Change Date g/cm2 vs Baseline vs Previous AP Spine (L1-L4) 08/13/2024 78 0.945 -0.9 -0.041 (-4.2%) -0.051 (-5.1%) 08/05/2022 76 0.996 -0.5 0.010 (1.0%) 0.029 (3.0%)* 06/13/2020 74 0.967 -0.7 -0.019 (-2.0%) -0.019 (-2.0%) 05/12/2018 72 0.986 -0.6 Total Hip(Left) 08/13/2024 78 0.821 -1.0 -0.046 (-5.3%) -0.048 (-5.6%) 08/05/2022 76 0.870 -0.6 0.003 (0.3%) 0.021 (2.5%) 06/13/2020 74 0.849 -0.8 -0.018 (-2.1%) -0.018 (-2.1%) 05/12/2018 72 0.867 -0.6 Total Hip(Right) 08/13/2024 78 0.898 -0.4 0.003 (0.4%) 0.004 (0.5%) 08/05/2022 76 0.893 -0.4 -0.001 (-0.1%) -0.024 (-2.6%) 06/13/2020 74 0.917 -0.2 0.023 (2.5%) 0.023 (2.5%) 05/12/2018 72 0.895 -0.4 *Denotes significance at 95% confidence level, LSC for AP Spine = 0.022 g/cm2, LSC for Total Hip = 0.027 g/cm2 Clinical Information Provided by Patient: Parent has had a hip fracture Has used the following medications: Vitamin D, Calcium Patient maximum height was 67.5 Menopause Age: 42 No regular weight bearing exercise Onset of menses at age 12 Number of children 0 Impression: The patient has low bone mass, based on the Left Femoral Neck T-score. The patient has an estimated ten-year risk of hip fracture of 13% and an estimated ten-year risk of major fracture of 22%, based on the WHO FRAX algorithm. The patient has risk factors, including: parental hip fracture. The BMD for the AP Spine (L1-L4) decreased, changing by -5.1% since the last DXA exam. The BMD for the Total Hip(Left) decreased, changing by -5.6% since the last DXA exam. Discussion: BONE DENSITY IS LOW AT ONE OR MORE SKELETAL SITES. THE PATIENT'S BMD AND CLINICAL RISK FACTORS CONTRIBUTE TO THIS PATIENT'S HIGH RISK OF FRACTURE. This patient's lowest T-score is low at one or more skeletal sites. It meets the World Health Organization's (WHO) criteria for ?low bone mass? (T-score between -1.0 and -2.5). The patient's 10-year risk of hip fracture and 10 year risk of a major osteoporotic fracture as calculated by FRAX exceeds the threshold where pharmacological therapy is recommended by the National Osteoporosis Foundation (NOF). However, all treatment decisions require clinical judgment and consideration of individual patient factors, including patient preferences, comorbidities, previous drug use, risk factors not captured in the FRAX model (e.g., frailty, falls, vitamin D deficiency, increased bone turnover, interval significant decline in bone density) and possible under or overestimation of fracture risk by FRAX. The patient should follow a healthful lifestyle (good nutrition with adequate calcium and vitamin D, and appropriate weight-bearing exercise). Follow-Up: Consider a repeat BMD and Vertebral Fracture Assessment (VFA) exam in 2 years or sooner if medically necessary, to reassess this patient's status. Reported by: JESSA on 08/13/2024 2:19:00 PM. Reviewed, dictated and finalized at location [facility]AE[facility]
== END 2024-08-13 13:36 | disposition home or self-care (01) ==
LOC: ANHIMG 13:38
PROVIDERS: PCP Nurse Practitioner; Visit Provider Nurse Practitioner
DX: Z12.31 Encounter for screening mammogram for malignant neoplasm of breast (principal); Z78.0 Asymptomatic menopausal state; M85.852 Other specified disorders of bone density and structure, left thigh; M85.851 Other specified disorders of bone density and structure, right thigh
CPT/HCPCS: 77063; 77067; 77080

== ENCOUNTER 2025-02-24 13:02 | Emergency (ER) | payer MEDICARE, SELFPAY ==
--- NOTE | 2025-02-24 13:04 | ED.NAVMDI ---
HPI - Nausea/Vomiting/Diarrhea General Stated complaint: Diarrhea Time Seen by Provider: 02/24/25 13:04 Source: patient Mode of arrival: ambulatory Limitations: no limitations History of Present Illness HPI Narrative: Xochitl is a 79-year-old female patient presenting to the clinic today with complaints of diarrhea x6 weeks. She reports normally she has 1 diarrhea stool per day but has gradually developed 2-3 diarrhea stools per day. States she feels fatigued and overall not feeling well. Denies any abdominal pain or muscle cramping. Denies any fever or blood in her stool. No nausea or vomiting. Related Data Home Medications ?Medication ?Instructions ?Recorded ?Confirmed ?Last Taken ?Type calcium citrate 1,000 mg tablet 1,000 mg PO DAILY 09/01/21 02/22/25 12/26/21 History coenzyme Q10 75 mg capsule (Ultra 200 mg PO DAILY 09/01/21 02/22/25 12/26/21 History CoQ10) multivitamin (Daily Multi-Vitamin 1 tablet PO DAILY 09/01/21 02/22/25 12/26/21 History tablet) niacin (inositol niacinate) 750 mg 1 cap PO DAILY 09/01/21 02/22/25 12/26/21 History capsule (Niacin Flush Free) omega-3 fatty acids 1,000 mg 1,000 mg PO DAILY 09/01/21 02/22/25 12/26/21 History capsule Allergies Allergy/AdvReac Type Severity Reaction Status Date / Time No Known Allergies Allergy Unknown Verified 02/22/25 10:06 Review of Systems Review of Systems: Pertinent positives per HPI. Patient denies any fever, chills, rash, headache, visual changes, dizziness, cough, runny nose, sore throat, shortness of breath, chest pain, palpitations, nausea, vomiting, constipation, abdominal pain, or any urinary issues. [facility] Past Medical History Medical History (Updated 02/24/25 @ 13:40 by Josesito Ibrahim APRN) BMI 31.0-31.9,adult Subcutaneous cyst Anxiety Osteopenia Hypertension Macular degeneration TMJ arthralgia Skin lesions Glucose intolerance (impaired glucose tolerance) Mixed hyperlipidemia Gastro-esophageal reflux disease without esophagitis Hypothyroidism, unspecified Surgical History Surgical History S/P dilation and curettage History of hysteroscopy [place] teeth removed History of tonsillectomy History of tubal ligation Family History Family History Sibling Lymphoma Lung cancer Father Diabetes mellitus, Onset Age: 78 Sibling Diabetes mellitus Mother Patient's mother is , Onset Age: 94 Hypertension Other Family history of arthritis Social History Social History (Updated 08/24/24 @ 11:09 by TIMOTHY Grijalva) Social History: Caffeine-decaf coffee Smoking packs per day: 0.5 Smoking cigarettes per day: 10.0 Years smoked: 10 Smoking pack-years: 5.00 Smoking status: Former smoker Tobacco type: cigarettes Second hand tobacco smoke exposure: No Smoking end date: 10/17/84 Alcohol intake: never Substance use: never Substance use type: does not use Do You Feel Safe in your Home?: Yes Lack of Transportation: No Lack of Food: Never True Current Housing: I Have Housing Concerned About Future Housing: No Difficulty Paying Gas/Electric Bills: No Difficulty Paying for Meds: No Currently Unemployed: No Education: Trade/Vocational Certificate Difficulty w/ Childcare or Family Care: No Living arrangements: alone Occupation/Education: retired 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 Gender identity (if verbalized by the patient): Female Spiritual care concerns: No Comments At the time of my signature, I reviewed and agree with the nursing past medical, surgical, social, and family history. There is no relevant family history pertinent to the patient complaint. Exam Narrative: General: Well-developed, well nourished, in no apparent distress. Head: Normocephalic, atraumatic. Cardio: Regular rate and rhythm, s1 and s2 normal, no murmur appreciated. Resp: Clear to auscultation bilaterally, no rhonchi, rales, wheezing or rubs. Abdomen: Soft, pliable, bowel sounds present in all quadrants, non-tender to palpation, no organomegly, no CVAT tenderness. Course Course Emergency Course: Portions of this record may have been created with voice recognition software. Level of Care: Express Care Visit Vital Signs Vital signs: Vital signs reviewed MDM - Nausea/Vomiting/Diarrhea MDM Narrative Medical decision making narrative: At the time of visit patient is resting comfortably on the exam table. Patient appears to be nontoxic. Explained to the patient that we are not able to do stool studies, blood work, or x-rays in the clinic at this time. Patient appears to be well-hydrated and is not complaining of any abdominal pain. She denies any fever or blood in her stool. Offer to send patient to the ER for further evaluation if she wished to have stool studies and labs completed at this time. Patient declined going to the emergency room. Recommend follow-up with her PCP next week. Supportive measures were discussed with the patient and they voiced understanding discharge instructions and agrees to treatment plan. Return precautions reviewed Differential Diagnosis Differential diagnosis: Likely traveler's diarrhea, food poisoning, gastroenteritis, clostridium difficile infection, drug-induced nausea and vomiting and dehydration Discharge Plan Discharge Clinical Impression: Diarrhea Qualifiers: Diarrhea type: unspecified type Qualified Code(s): R19.7 - Diarrhea, unspecified Patient Disposition: Home Condition: Stable Instructions: Antibiotic Form, Acute Diarrhea (ED) Additional Instructions: May take Imodium as needed for diarrhea as long as you do not have any blood in your stool. Increase fluids and stay well hydrated Tylenol/motrin for pain/fever BRAT diet for diarrhea Clear liquids x 24 hours then advance as tolerated for nausea/vomiting Go to the ED if you develop a worsening in your condition- high fever not controlled by Tylenol or Motrin, dehydration, weakness, lethargy, shortness of breath, chest pain, or abdominal pain. Follow up with your PCP in 3-5 days if symptoms persist. May need imaging, labs, and stool studies Patient Language: Frisian Prescriptions: No Action cholecalciferol (vitamin D3) 50 mcg (2,000 unit) tablet 50 mcg PO DAILY Qty: 90 1RF omega-3 fatty acids 1,000 mg capsule 1,000 mg PO DAILY calcium citrate 1,000 mg tablet 1,000 mg PO DAILY Niacin Flush Free 750 mg capsule 1 cap PO DAILY Ultra CoQ10 75 mg capsule 200 mg PO DAILY multivitamin [Daily Multi-Vitamin] Tablet 1 tablet PO DAILY levothyroxine 100 mcg tablet 100 mcg PO DAILY Qty: 90 1RF simvastatin [Zocor] 20 mg tablet 20 mg PO HS Qty: 90 1RF Rx Instructions: Take 1 tablet by mouth once daily triamterene-hydrochlorothiazid 37.5-25 mg capsule See Rx Instructions .ROUTE .COMPLEX Qty: 90 3RF Dose Instruction: TAKE 1 CAPSULE DAILY Rx Instructions: TAKE 1 CAPSULE DAILY metoprolol succinate 50 mg tablet extended release 24 hr See Rx Instructions .ROUTE .COMPLEX Qty: 90 3RF Dose Instruction: TAKE 1 TABLET EVERY MORNING Rx Instructions: TAKE 1 TABLET EVERY MORNING losartan 50 mg tablet See Rx Instructions .ROUTE .COMPLEX Qty: 90 3RF Dose Instruction: TAKE 1 TABLET AT BEDTIME Rx Instructions: TAKE 1 TABLET AT BEDTIME omeprazole 20 mg capsule,delayed release(DR/EC) See Rx Instructions .ROUTE .COMPLEX Qty: 90 3RF Dose Instruction: TAKE 1 CAPSULE EVERY MORNING Rx Instructions: TAKE 1 CAPSULE EVERY MORNING Follow-up/Referrals: Aung Proctor APRN [Primary Care Provider] - Time of Disposition: 13:39 Quality NIHSS Nursing Documentation ED NIHSS nursing documentation: reviewed/agree
[2025-02-24 13:10] VITALS: BP 145/80; PULSE 69; RESP 20; TEMP 36.6; O2SAT 99
== END 2025-02-24 13:56 | disposition home or self-care (01) ==
PROVIDERS: Emergency Provider Nurse Practitioner Family; PCP Nurse Practitioner
DX: R19.7 Diarrhea, unspecified (principal); I10 Essential (primary) hypertension; E03.9 Hypothyroidism, unspecified; K21.9 Gastro-esophageal reflux disease without esophagitis; E78.2 Mixed hyperlipidemia; R73.01 Impaired fasting glucose; H35.30 Unspecified macular degeneration; M81.0 Age-related osteoporosis without current pathological fracture; Z87.891 Personal history of nicotine dependence
CPT/HCPCS: 99211; G0463

== ENCOUNTER 2025-04-03 09:34 | Outpatient (CLI) | payer MEDICARE, SELFPAY ==
--- OUTSIDE RECORDS SUMMARY | 2025-04-03 10:28 | XMS_ITS | Clinical Summary ---
Author Organization [facility] Address [address] Smithn: Epic Prelude ADT BAMBI ZAMAN [address] Care Team Providers Care Information Security Consultant Name Role Phone Unavailable Primary Care Provider Unavailabl e Immunizations Immunization Administration Dates Next Due INFLUENZA VACCINE HIGH DOSE QUADRIVALENT 65 YR UP PF IM 07/28/2023,07/28/2022 INFLUENZA VACCINE HIGH DOSE TRIVALENT SPLIT VIRUS, (65 YR UP), 0.5ML (PF), IM 08/14/2024 Social History Tobacco Use Types Packs/Day Years Used Date Smoking Tobacco: Never Assessed Comments Unknown Sex and Gender Information Value Date Recorded Sex Assigned at Not on file Legal Sex Female 3:27 PM CDT Gender Identity Not on file Sexual Orientation Not on file Plan of Treatment Health Maintenance Due Date Last Done Comments DTAP/TDAP/TD VACCINES (1 - Tdap) 1964 PNEUMOCOCCAL VACCINE 50+ YEA RS (1 of 1 - PCV) 1995 ZOSTER VACCINE (1 of 2) 1995 OSTEOPOROSIS SCREENING 2010 RSV VACCINE (60+ or ) (1 - 1-dose 75+ series) 2020 INFLUENZA VACCINE Completed 08/14/2024, , 07/28/2022 Insurance RX ALLWIN DATA Medicare Part B
--- OUTSIDE RECORDS SUMMARY | 2025-04-03 10:28 | XMS_ITS | Continuity of Care Document ---
Author Organization [facility] Address [address] [place] [address] Phone Care Team Providers Care Stopboard Assembler Name Role Phone [facility] Unavailable Unavail able Sickdena, Arline Unavailable Unavailable Advance Directives Directive Yes / No Effective Date File Name No Information Encounters Encounter Description Practice Location Reason(s) For Visit Diagnoses Date Provider Providers Copied on Encounter [facility], [address], [place], [place], [id number], [place] tel:[phone] [facility] No Information 0-200 5 [facility] [address], [address], [place], [place], [id number] , [place]. tel:[phone] Consulting Provider: Arline Vincent, [address] [place] [address], [address]. tel:[phone] Family History Family Member Type Diagnosis Age [...]
[2025-04-03 11:29] LABS: Toxigenic C. Diff NEGATIVE (NEGATIVE)
[2025-04-10 20:18] LABS: Calprotectin, Stool. 63 mcg/g
[2025-04-11 03:28] LABS: Pancreatic Elastase, Stool. 370 mcg/g (>200)
== END 2025-04-03 09:35 | disposition home or self-care (01) ==
LOC: ANHLAB 09:35
PROVIDERS: PCP Nurse Practitioner; Visit Provider Nurse Practitioner Family
DX: R19.7 Diarrhea, unspecified (principal)
CPT/HCPCS: 82653; 83993; 87045; 87427; 87449; 87493

== ENCOUNTER 2025-05-16 08:40 | Outpatient (CLI) | payer MEDICARE, SELFPAY ==
--- NOTE | ~2025-05-16 | CT_ITS ---
CT of the Abdomen and Pelvis: Indication: Abdominal pain Technique: 2.5 mm axial scans were obtained through the abdomen and pelvis following intravenous adm inistration of 100 cc of Omnipaque 350. Dose reduction technique was used on this scan by utilizing a utomated exposure control and iterative reconstruction technique. The dose-length product (DLP) was 7 73.36 mGy-cm. COMPARISON: 08/28/2022 Findings: Scans through the lung bases are unremarkable. The liver, spleen, pancreas, gallbladder, adrenals and kidneys are within normal limits. No evidence of aortic aneurysm. No lymphadenopathy. No bowel obstruction or bowel wall thickening. There is no evidence to suggest acute appendicitis. Images through the pelvis were performed. Urinary bladder unremarkable. No pelvic mass seen. No ascit es. Impression: No significant abnormalities seen. Reviewed, dictated and finalized at [facility]. Impression: No significant abnormalities seen.
--- OUTSIDE RECORDS SUMMARY | 2025-05-16 08:46 | XMS_ITS | Continuity of Care Document ---
Author Organization [facility] Address [address] [place] [address] Phone Care Team Providers Care Tool And Die Engineer Name Role Phone [facility] Unavailable Unavail able Sickdena, Arline Unavailable Unavailable Advance Directives Directive Yes / No Effective Date File Name No Information Encounters Encounter Description Practice Location Reason(s) For Visit Diagnoses Date Provider Providers Copied on Encounter [facility]ly [facility], [address], [place], [place], [id number], [place] tel:[phone] [facility] No Information 0-200 5 [facility] [employer] [address] [facility], [address], [place], [place], [address] , [place]. tel:[phone] Consulting Provider: Arline Vincent, [address] [place] [address], [address]. tel:[phone] Family History Family Member Type Diagnosis Age At Onset No Information Payers Payer name Insurance type Covered libertarian ID Authoriza tion(s) No Information Social History [...]
--- OUTSIDE RECORDS SUMMARY | 2025-05-16 08:46 | XMS_ITS | Clinical Summary ---
Author Organization [facility] Address [address] Smithn: Epic Prelude ADT BAMBI ZAMAN [address] Care Team Providers Care Teletype Operator Name Role Phone Unavailable Primary Care Provider [...] - 1-dose 75+ series) 2020 INFLUENZA VACCINE (#1) 2025 , 07/28/2023, 07/28/2022 Insurance RX [employer]WIN DATA Medicare Part B
[2025-05-16 09:01] LABS: Estimated Glomerular Filt Rate 53
== END 2025-05-16 08:41 | disposition home or self-care (01) ==
PROVIDERS: PCP Nurse Practitioner; Visit Provider Nurse Practitioner Family
DX: R10.30 Lower abdominal pain, unspecified (principal); R19.4 Change in bowel habit
CPT/HCPCS: 74177; Q9967

== ENCOUNTER 2025-07-13 08:06 | Outpatient (CLI) | payer MEDICARE, SELFPAY ==
--- OUTSIDE RECORDS SUMMARY | 2005-02-22 19:00 | XMS_ITS | Continuity of Care Document ---
Author Organization [facility] Address [address] [facility] [address] [place] [address] Phone Care Team Providers Care Crm Analyst Name Role Phone [facility] Unavailable Unavail able Sickdena, Arline Unavailable Unavailable Advance Directives Directive Yes / No Effective Date File Name No Information Encounters Encounter Description Practice Location Reason(s) For Visit Diagnoses Date Provider Providers Copied on Encounter [facility], [address], [place], [place], [id number], [place] tel:[phone] [facility] No Information 0-200 5 [facility] [employer] [address] [facility], [address], [place], [place], [address] , [place]. tel:[phone] Consulting Provider: Arline Vincent, [address] [place] [address], [address]. tel:[phone] Family History Family Member Type Diagnosis Age At Onset No Information Payers Payer name Insurance type Covered constitution party ID Authoriza tion(s) No Information Social [...]
== END 2025-07-13 08:07 | disposition home or self-care (01) ==
LOC: ANHLAB 08:07
PROVIDERS: PCP Nurse Practitioner; Visit Provider Nurse Practitioner Family
DX: R19.7 Diarrhea, unspecified (principal)
CPT/HCPCS: 87045; 87046; 87427

== ENCOUNTER 2025-08-15 13:40 | Outpatient (CLI) | payer MEDICARE, SELFPAY ==
--- OUTSIDE RECORDS SUMMARY | 2005-02-22 19:00 | XMS_ITS | Continuity of Care Document ---
Author Organization [facility] Address [address] [facility] [address] [place] [address] Phone Care Team Providers Care Mill Labor Supervisor Name Role Phone [facility] Unavailable Unavail able Sickdena, Arline Unavailable Unavailable Advance Directives Directive Yes / No Effective Date File Name No Information Encounters Encounter Description Practice Location Reason(s) For Visit Diagnoses Date Provider Providers Copied on Encounter [facility], [address], [place], [place], [id number], [place] tel:[phone] [facility] No Information 0-200 5 [facility] [employer] [address] [facility], [address], [place], [place], [address] , [place]. tel:[phone] Consulting Provider: Arline Vincent, [address] [place] [address], [address]. tel:[phone] Family History Family Member Type Diagnosis Age [...]
--- NOTE | ~2025-08-15 | MM_ITS ---
EXAMINATION: MM screening [facility] BI w haider HISTORY: Screening TECHNIQUE: Craniocaudal and mediolateral oblique 3-D tomosynthesis images were obtained and synthetic 2-D images were generated. CAD analysis was submitted and interpreted. COMPARISON: Comparison to multiple prior studies sequentially, with oldest reviewed study dated 05/15/2019. BREAST PARENCHYMAL COMPOSITION: Not dense: There are scattered areas of fibroglandular density. FINDINGS: There is no evidence of suspicious mass, calcification, or architectural distortion to suggest malignancy in either breast. There has been no suspicious interval change. IMPRESSION: 1. No mammographic evidence of malignancy. 2. Recommend routine screening mammography in one year. BI-RADS Category 1: Negative Reviewed, dictated and finalized at location B.
--- OUTSIDE RECORDS SUMMARY | 2025-08-15 14:14 | XMS_ITS | Clinical Summary ---
Author Organization [facility] Address [address] Smithn: Epic Prelude ADT BAMBI ZAMAN [address] Care Team Providers Care Medical Social Worker Name Role Phone Unavailable Primary Care Provider Unavailabl e Encounters Date Type Department Care Team Description 08/14/2025 External Device Data [facility] Provider, Abstract 05/22/2025 External Device Data [facility] Provider, Abstract from Last 3 Months Immunizations Immunization Administration Dates Next Due INFLUENZA VACCINE HIGH DOSE QUADRIVALENT 65 YR UP PF IM 07/28/2023,07/28/2022 INFLUENZA VACCINE HIGH DOSE TRIVALENT SPLIT VIRUS, (65 YR UP), 0.5ML (PF), IM 07/22/2025,08/14/2024 Social History Tobacco Use Types Packs/Day Years [...] 1-dose 75+ series) 2020 INFLUENZA VACCINE Completed 07/22/2025, , 07/28/2023, Additional history exists Insurance RX [employer]WIN DATA Medicare Part B
--- OUTSIDE RECORDS SUMMARY | 2025-08-15 14:14 | XMS_ITS | Encounter Summary ---
Author Organization [facility] Address [address] [place] [address] Care Team Providers Care Department Of Natural Resources Officer Name Role Phone Unavailable Primary Care Provider Unavailabl e Encounter Details Date Type Department Care Team (Late st Contact Info) Description 08/14/2025 External Device Data [facility] Provider, Abstract NO ADDRESS ON FILE Social History Tobacco Use Types Packs/Day Years Used Date Smoking Tobacco: Never Assessed Comments Unknown Sex and Gender Information Value Date Recorded Sex Assigned at Not on file Legal Sex Female 3:27 PM CDT Gender Identity Not on file Sexual Orientation Not on file documented as of this encounter Plan of Treatment Not on file documented as of this encounter Visit Diagnoses Not on filedocumented in this encounter
== END 2025-08-15 13:41 | disposition home or self-care (01) ==
LOC: ANHFOHIMG 13:43
PROVIDERS: PCP Nurse Practitioner; Visit Provider Nurse Practitioner
DX: Z12.31 Encounter for screening mammogram for malignant neoplasm of breast (principal)
CPT/HCPCS: 77063; 77067

== ENCOUNTER 2025-08-26 15:43 | Emergency (ER) | payer MEDICARE, SELFPAY ==
--- OUTSIDE RECORDS SUMMARY | 2005-02-22 18:00 | XMS_ITS | Continuity of Care Document ---
Author Organization [facility] Address [address] [facility] [address] [place] [address] Phone Care Team Providers Care Booth Usher Name Role Phone [facility] Unavailable Unavail able Sickdena, Arline Unavailable Unavailable Advance Directives Directive Yes / No Effective Date File Name No Information Encounters Encounter Description Practice Location Reason(s) For Visit Diagnoses Date Provider Providers Copied on Encounter [facility], [address], [place], [place], [id number], [place] tel:[phone] [facility] No Information 0-200 5 [facility] [employer] [address] [facility], [address], [place], [place], [id number] , [place]. tel:[phone] Consulting Provider: Arline Vincent, [address] [place] [address], [address]. tel:[phone] Family History Family Member Type Diagnosis Age At Onset No Information Payers Payer name Insurance type Covered green party ID Authoriza tion(s) No Information Social History Type Description Quantity Date Captured Comments Sex Female Smoking Status No Information Chief Complaint And Reason For Visit No Information Reason For Referral Reason For Referral No Information History Of Present Illness Encounter Date Complaint History Of Prese nt Illness No Information Functional Status Date Functional Assessmen t No Information Instructions Date Instruction Additional Infor mation No Information Assessments Type Assessment Date No Information Patient Care Teams Name Effective Dates (start - stop) Status Members No Information
--- NOTE | ~2025-08-26 | XR_ITS ---
EXAMINATION: XR chest 2V, 08/26/2025 17:52 GIS MAPPING TECHNICIAN HISTORY: palpitations COMPARISON: No comparisons available. Technique: 2 views obtained. Findings: The lungs are clear, no effusion. No pneumothorax. Heart is normal size. Mediastinal and hilar contours are within normal limits. Bony thorax no acute abnormality. Impression: No acute cardiopulmonary abnormality. Reviewed, dictated and finalized at location P. MAPPING TECHNICIAN Impression: No acute cardiopulmonary abnormality.
--- NOTE | ~2025-08-26 | CT_ITS ---
CTA chest PE protocol HISTORY:tachycardia, weakness, elevated dimer . COMPARISON: None. TECHNIQUE: Following the noncontrasted hydrometeorological technician, axial images of the thorax were obtained following infusion of 100 cc of Isovue 370. Post-processing on an independent workstation was performed to reconstruct MIP images for evaluation of the thoracic vasculature. FINDINGS: There is no pulmonary embolism, aortic dissection, thoracic aneurysm or pericardial fluid. Mild groundglass opacities are noted within the lower lobes bilaterally. There is centrilobular emphysema. No pleural effusion or pneumothorax is noted. There is no axillary, mediastinal or hilar adenopathy. Limited evaluation of the upper abdomen demonstrates no gross abnormalities. Review of bone windows demonstrates no osteoblastic or lytic lesions. IMPRESSION: There is no pulmonary embolism, aortic dissection, pericardial fluid or thoracic aneurysm. Groundglass opacities are present bilaterally. All CT scans at this facility are performed using low dose modulation techniques as appropriate to perform exam including the following: automated exposure control; use of iterative reconstruction technique; adjustment of the mA and/or kV according to patient size (this includes techniques or standardized protocols for targeted exams where dose is matched to indication/reason for exam). Reviewed, dictated and finalized at location S. OR EMBEDDED SOFTWARE ENGINEER IMPRESSION: There is no pulmonary embolism, aortic dissection, pericardial fluid or thoraci c aneurysm. Groundglass opacities are present bilaterally. All CT scans at this facility are performed using low dose modulation techniqu es as appropriate to perform exam including the following: automated exposure c ontrol; use of iterative reconstruction technique; adjustment of the mA and/or kV according to patient size (this includes techniques or standardized protocol s for targeted exams where dose is matched to indication/reason for exam).
--- OUTSIDE RECORDS SUMMARY | 2025-08-26 15:46 | XMS_ITS | Clinical Summary ---
Author Organization [facility] Address [address] Smithn: Epic Prelude ADT BAMBI ZAMAN [address] Care Team Providers Care Clinical Rn Name Role Phone Unavailable Primary Care Provider Unavailabl e Encounters Date Type Department Care Team Description 08/14/2025 External Device Data [facility] Provider, Abstract 08/14/2025 External Device Data [facility] Provider, [...]
--- NOTE | 2025-08-26 15:47 | ECG_ITS ---
Test Date: 2025-08-26 15:52:53 Measurements Intervals [place] Rate: 82 P: 0 AL: 0 QRS: -12 QRSD: 79 T: 3 QT: 328 QTc: 385 Interpretive Statements ATRIAL FLUTTER/TACHYCARDIA LOW QRS VOLTAGE IN PRECORDIAL LEADS [QRS DEFLECTION < 1.0 mV IN CHEST LEADS] MINIMAL VOLTAGE CRITERIA FOR LVH, CONSIDER NORMAL VARIANT [MEETS CRITERIA IN ONE OF: R(aVL), S(V1), R(V5), R(V5/V6)+S(V1)] ANTEROSEPTAL MYOCARDIAL INFARCTION , OF INDETERMINATE AGE [40+ ms Q WAVE IN V1-V4] No previous ECG available for comparison Electronically Signed On 08-27-2025 17:58:17 DISABILITY LIAISON OFFICER by Vangie Ferraro M.D.
[2025-08-26 15:53] VITALS: BP 115/70; PULSE 137; RESP 18; TEMP 36.4; O2SAT 99
--- NOTE | 2025-08-26 17:47 | PC.NURSE ---
pt stated that doctor sent her over her to check her blood pressure and heart rate. she has been going through alot of stress trying to sell house
[2025-08-26 17:48] VITALS: BP 133/75; PULSE 73; RESP 20; O2SAT 99
--- NOTE | 2025-08-26 18:14 | ED.RECABL ---
HPI - Recheck/Abnormal Lab/Rx General Chief Complaint: Recheck/Abnormal Lab/Rx Stated Complaint: abnormal EKG Time Seen by Provider: 08/26/25 17:52 Source: patient Mode of arrival: EMS Limitations: no limitations History of Present Illness HPI narrative: This is a 79-year-old female that presents to the emergency department for abnormal heart rhythm. She was seen at her PCPs office and noted to be atrial flutter with RVR. No previous history of this. Does report she has been having intermittent palpitations over the last couple of months. Related Data Home Medications ?Medication ?Instructions ?Recorded ?Confirmed ?Last Taken ?Type calcium citrate 1,000 mg tablet 1,000 mg PO DAILY 09/01/21 08/26/25 12/26/21 History coenzyme Q10 75 mg capsule (Ultra 200 mg PO DAILY 09/01/21 08/26/25 12/26/21 History CoQ10) multivitamin (Daily Multi-Vitamin 1 tablet PO DAILY 09/01/21 08/26/25 12/26/21 History tablet) niacin (inositol niacinate) 750 mg 1 cap PO DAILY 09/01/21 08/26/25 12/26/21 History capsule (Niacin Flush Free) omega-3 fatty acids 1,000 mg 1,000 mg PO DAILY 09/01/21 08/26/25 12/26/21 History capsule Allergies Allergy/AdvReac Type Severity Reaction Status Date / Time No Known Allergies Allergy Unknown Verified 08/26/25 15:47 Review of Systems Review of Systems: All systems reviewed & are unremarkable except as noted in HPI and below PMFSH Past Medical History Medical History BMI 31.0-31.9,adult Subcutaneous cyst Anxiety Osteopenia Hypertension Macular degeneration TMJ arthralgia Skin lesions Glucose intolerance (impaired glucose tolerance) Mixed hyperlipidemia Gastro-esophageal reflux disease without esophagitis Hypothyroidism, unspecified Surgical History Surgical History S/P dilation and curettage History of hysteroscopy [place] teeth removed History of tonsillectomy History of tubal ligation Family History Family History Sibling Lymphoma Lung cancer Father Diabetes mellitus, Onset Age: 78 Sibling Diabetes mellitus Mother Patient's mother is , Onset Age: 94 Hypertension Other Family history of arthritis Social History Social History Social History: Caffeine-decaf coffee Smoking packs per day: 0.5 Smoking cigarettes per day: 10.0 Years smoked: 10 Smoking pack-years: 5.00 Tobacco type: cigarettes Second hand tobacco smoke exposure: No Smoking end date: 10/17/84 Alcohol intake: never Substance use: never Substance use type: does not use Do You Feel Safe in your Home?: Yes Lack of Transportation: No Lack of Food: Never True Current Housing: I Have Housing Concerned About Future Housing: No Difficulty Paying Gas/Electric Bills: No Difficulty Paying for Meds: No Currently Unemployed: No Education: Trade/Vocational Certificate Difficulty w/ Childcare or Family Care: No Living arrangements: alone Occupation/Education: retired 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 Gender identity (if verbalized by the patient): Female Spiritual care concerns: No Exam Narrative: GENERAL: Well-appearing, well-nourished, and in no acute distress. HEAD: Normocephalic, atraumatic. EYES: EOMI. ENT: Nares clear, no rhinorrhea or epistaxis. Mucous membranes moist. Oropharynx without tonsillar hypertrophy exudate or other lesions. Bilateral TMs pearly andrews non-bulging NECK: Supple. No adenopathy or masses. CHEST: Clear to auscultation. No respiratory distress. No wheezes rales or rhonchi HEART: Regular rate and rhythm. No murmur heard. Normal peripheral pulses. EXTREMITIES: Normal range of motion. No edema. SKIN: Warm, dry, no rash. NEURO: No focal deficits. Alert and oriented x3. PSYCH: Normal mood and affect Course Consultations Consultation #1: Spoke with hospitalist about patient and workup. Recommends further outpatient follow-up with her aids nurse. Will increase her metoprolol and start Xarelto Date: 08/27/25 Vital Signs Vital signs: Vital Signs Temperature 97.6 F 08/26/25 15:53 Pulse Rate 137 H 08/26/25 15:53 Respiratory Rate 18 08/26/25 15:53 Blood Pressure 115/70 08/26/25 15:53 Pulse Oximetry 99 08/26/25 15:53 Oxygen Delivery Room Air 08/26/25 15:53 Temperature 97.6 F 08/26/25 15:53 Pulse Rate 62 08/27/25 01:38 Respiratory Rate 18 08/27/25 01:38 Blood Pressure 125/93 H 08/27/25 01:38 Pulse Oximetry 100 08/27/25 01:38 Oxygen Delivery Room Air 08/26/25 17:48 MDM - Recheck/Abnormal Lab/Rx MDM Narrative Medical decision making narrative: This patient presents to the emergency department for an episode of a flutter with RVR. Patient had converted without intervention. Has remained in normal sinus rhythm. Cbc without leukocytosis. Metabolic panel with evidence of dehydration. Patient hydrated with L of IV fluids. Influenza, RSV and COVID screens are negative. CTA chest PE obtained for further evaluation. No evidence of PE. Showing some ground-glass opacities. Patient does not have any fever or cough. TSH is normal. Baseline troponin is negative. Spoke with hospitalist about patient and workup. Recommends further outpatient follow-up with her aids nurse. Will increase her metoprolol and start Xarelto Differential Diagnosis Differential diagnosis: Likely other (Atrial fibrillation, atrial flutter, PE, acute kidney injury, dehydration) Lab Data Attestation: I reviewed the patient's lab results. 08/26/25 18:21 08/27/25 00:00 Labs: Lab Results 08/26/25 08/26/25 08/27/25 Range/Units 18:21 20:57 00:00 WBC 8.3 (4.5-10.0) K/mm3 RBC 4.00 L (4.2-5.4) M/mm3 Hgb 12.9 (12.0-15.0) g/dL Hct 39.2 (37.0-47.0) % MCV 98.0 (80-100) fl MCH 32.3 (26-34) pg MCHC 32.9 (32-36) g/dl RDW 12.1 (11.5-14.5) % Plt Count 243 (150-375) k/mm3 MPV 9.7 (7.4-10.4) fl Immature Gran % (Auto) 0.4 (0-0.5) % Neut % (Auto) 61.9 (45.5-73.1) % Lymph % (Auto) 26.1 (18.3-44.2) % Whitley % (Auto) 9.6 H (2.6-8.5) % Eos % (Auto) 1.3 (0-4.4) % Baso % (Auto) 0.7 (0.2-1.2) % Lymph # (Auto) 2.15 (0.9-3.2) K/mm3 Whitley # (Auto) 0.8 H (0.1-0.6) K/mm3 Eos # (Auto) 0.1 (0-0.3) K/mm3 Baso # (Auto) 0.1 (0.0-0.1) K/mm3 Abs Immat Gran (auto) 0.03 (0.00-0.031) K/mm3 Absolute Neuts (auto) 5.1 (1.3-6.7) K/mm3 Absolute Nucleated RBC 0.000 (0.0-0.012) K/mm3 Nucleated RBC % 0.0 (0.0-0.2) % PT 13.1 (11.1-14.7) Seconds INR 1.0 APTT 26.2 (22.3-36.8) Seconds D-Dimer 2.15 H (<0.48) ug/mL Sodium 130 L 130 L (137-145) mmol/L Potassium 3.6 3.4 (3.4-5.0) mmol/L Chloride 95 L 100 (98-107) mmol/L Carbon Dioxide 29 26 (22-30) mmol/L Anion Gap 6 4 (4-12) mmol/L BUN 24 H D 20 H (7-17) mg/dL Creatinine 1.41 H 1.18 H (0.7-1.0) mg/dL Estim Creat Clear Calc 32 38 ml/min Estimated GFR 36 L 44 L (59 - ) Glucose 106 96 (65-110) mg/dL Calcium 9.1 8.6 (8.4-10.2) mg/dL Total Bilirubin 0.4 (0.2-1.3) mg/dL AST 28 (14-36) U/L ALT 18 (6-35) U/L Alkaline Phosphatase 53 (38-126) U/L Troponin I 0.032 (0.000-0.034) ng/mL Total Protein 6.9 (6.3-8.2) g/dL Albumin 4.1 (3.5-5.1) g/dL Lipase 90 (23-300) U/L TSH (Reflex) 1.600 (0.465-4.68) uIU/mL Influenza A (RT-PCR) Negative (Negative) Influenza B (RT-PCR) Negative (Negative) RSV (RT-PCR) Negative (Negative) SARS-CoV-2 RNA (RT-PCR) Negative (Negative) Imaging Data Radiologist's impression: ITS Impressions Chest X-Ray 08/26/25 18:03 Impression: No acute cardiopulmonary abnormality. Chest CTA 08/26/25 20:26 IMPRESSION: There is no pulmonary embolism, aortic dissection, pericardial fluid or thoracic aneurysm. Groundglass opacities are present bilaterally. All CT scans at this facility are performed using low dose modulation techniques as appropriate to perform exam including the following: automated exposure control; use of iterative reconstruction technique; adjustment of the mA and/or kV according to patient size (this includes techniques or standardized protocols for targeted exams where dose is matched to indication/reason for exam). Critical Care Time Critical Care Time Critical Care Time: Yes Total Critical Care Time: 35 Discharge Plan Discharge Clinical Impression: New onset atrial flutter, Acute kidney injury Patient Disposition: Home Condition: Improved Instructions: Atrial Flutter (ED), Dehydration (ED) Additional Instructions: Return to the emergency department if you experience fever, chest pain, shortness of breath, abdominal pain with nausea and vomiting, weakness, numbness, or any other symptoms that are concerning to you. You were found to have an episode of atrial flutter today. It is recommended that you start a blood thinner to reduce your risk of stroke. I am also going to increase your metoprolol to help control your heart rate Take Xarelto as prescribed. I am increasing your Metoprolol to 75mg daily. I have sent a prescription of 25mg to take with your 50mg tablets Follow up with your aids nurse. Call in the morning to make an appointment Patient Language: Icelandic Prescriptions: New Xarelto 20 mg tablet 20 mg PO DAILY 30 Days Qty: 30 0RF Rx Instructions: must administer with evening meal metoprolol succinate 25 mg tablet extended release 24 hr 25 mg PO DAILY Qty: 30 0RF No Action cholecalciferol (vitamin D3) 50 mcg (2,000 unit) tablet 50 mcg PO DAILY Qty: 90 1RF omega-3 fatty acids 1,000 mg capsule 1,000 mg PO DAILY calcium citrate 1,000 mg tablet 1,000 mg PO DAILY Niacin Flush Free 750 mg capsule 1 cap PO DAILY Ultra CoQ10 75 mg capsule 200 mg PO DAILY multivitamin [Daily Multi-Vitamin] Tablet 1 tablet PO DAILY budesonide 3 mg capsule,delayed,extend.release 9 mg PO DAILY Qty: 90 2RF diphenoxylate-atropine [Lomotil] 2.5-0.025 mg tablet 1 tablet PO TID Qty: 270 2RF triamterene-hydrochlorothiazid 37.5-25 mg capsule See Rx Instructions .ROUTE .COMPLEX Qty: 90 3RF Dose Instruction: TAKE 1 CAPSULE DAILY Rx Instructions: TAKE 1 CAPSULE DAILY metoprolol succinate 50 mg tablet extended release 24 hr See Rx Instructions .ROUTE .COMPLEX Qty: 90 3RF Dose Instruction: TAKE 1 TABLET EVERY MORNING Rx Instructions: TAKE 1 TABLET EVERY MORNING losartan 50 mg tablet See Rx Instructions .ROUTE .COMPLEX Qty: 90 3RF Dose Instruction: TAKE 1 TABLET AT BEDTIME Rx Instructions: TAKE 1 TABLET AT BEDTIME levothyroxine 100 mcg tablet See Rx Instructions .ROUTE .COMPLEX Qty: 90 3RF Dose Instruction: TAKE 1 TABLET DAILY Rx Instructions: TAKE 1 TABLET DAILY simvastatin 20 mg tablet See Rx Instructions .ROUTE .COMPLEX Qty: 90 3RF Dose Instruction: TAKE 1 TABLET DAILY AT BEDTIME Rx Instructions: TAKE 1 TABLET DAILY AT BEDTIME dicyclomine 10 mg capsule 10 mg PO QID Qty: 120 3RF lorazepam 0.5 mg tablet 0.25 mg PO DAILY Qty: 45 0RF Follow-up/Referrals: Viraj Browning DO [Physician, Cardiology] Aung Proctor APRN [Primary Care Provider, Internal Medicine]
--- NOTE | 2025-08-26 18:16 | ECG_ITS ---
Test Date: 2025-08-26 18:23:58 Measurements Intervals [place] Rate: 64 P: 12 MS: 177 QRS: -16 QRSD: 99 T: 17 QT: 376 QTc: 388 Interpretive Statements SINUS RHYTHM LOW QRS VOLTAGE IN PRECORDIAL LEADS [QRS DEFLECTION < 1.0 mV IN CHEST LEADS] MODERATE VOLTAGE CRITERIA FOR LVH, CONSIDER NORMAL VARIANT [MEETS CRITERIA IN ONE OF: R(aVL), S(V1), R(V5), R(V5/V6)+S(V1)] POSSIBLE ANTERIOR MYOCARDIAL INFARCTION , OF INDETERMINATE AGE [30 ms Q WAVE IN V3/V4, OR R < 0.2 mV IN V4] Compared to ECG 08/26/2025 15:52:53 Atrial flutter no longer present Myocardial infarct finding still present Electronically Signed On 08-27-2025 17:30:01 ORTHOPEDICALLY IMPAIRED TEACHER by Vangie Ferraro M.D.
--- OUTSIDE RECORDS SUMMARY | 2025-08-26 18:29 | XMS_ITS | Clinical Summary ---
Author Organization [facility] Address [address] Smithn: Epic Prelude ADT BAMBI ZAMAN [id number] Care Team Providers Care Records Coordinator Name Role Phone Unavailable Primary Care Provider [...]
[2025-08-26 18:33] LABS: Hematocrit 39.2 % (37.0-47.0); Hemoglobin 12.9 g/dL (12.0-15.0); Immature Granulocyte Percent A 0.4 % (0-0.5); Lymphocytes Absolute Auto 2.15 K/mm3 (0.9-3.2); Mean Corpuscular HGB Conc 32.9 g/dl (32-36); Mean Corpuscular Hemoglobin 32.3 pg (26-34); Mean Corpuscular Volume 98.0 fl (80-100); Nucleated Red Blood Cells Absolute Auto 0.000 K/mm3 (0.0-0.012); Nucleated Red Blood Cells Perc 0.0 % (0.0-0.2); Platelet Count Result 243 k/mm3 (150-375); Red Blood Count 4.00 M/mm3 (4.2-5.4); White Blood Count 8.3 K/mm3 (4.5-10.0)
[2025-08-26 18:44] LABS: INR 1.0; Partial Thromboplastin Time 26.2 Seconds (22.3-36.8); Prothrombin Time 13.1 Seconds (11.1-14.7)
[2025-08-26 18:46] LABS: Alanine Aminotransferase 18 U/L (6-35); Albumin Level 4.1 g/dL (3.5-5.1); Alkaline Phosphatase 53 U/L (38-126); Anion Gap 6 mmol/L (4-12); Aspartate Amino Transferase 28 U/L (14-36); Bilirubin,Total 0.4 mg/dL (0.2-1.3); Blood Urea Nitrogen 24 mg/dL (7-17); Calcium 9.1 mg/dL (8.4-10.2); Carbon Dioxide 29 mmol/L (22-30); Chloride 95 mmol/L (98-107); Estimated CRCL calculation 32 ml/min; Estimated Glomerular Filt Rate 36; Glucose 106 mg/dL (65-110); Lipase 90 U/L (23-300); Potassium 3.6 mmol/L (3.4-5.0); Sodium 130 mmol/L (137-145); Total Protein 6.9 g/dL (6.3-8.2)
[2025-08-26 18:57] LABS: Troponin I 0.032 ng/mL (0.000-0.034)
[2025-08-26] MEDS: SODIUM CHLORIDE 0.9% IV 500 ML 999 ML IV CONT ×2 (19:12→21:21)
[2025-08-26 19:17] LABS: Thyroid Stimulating Hormone Reflex 1.600 uIU/mL (0.465-4.68)
[2025-08-26 19:19] VITALS: BP 142/63; PULSE 64; RESP 13; O2SAT 99
[2025-08-26 20:28] VITALS: BP 138/57; PULSE 69; RESP 19; O2SAT 99
[2025-08-26 21:42] LABS: Influenza A QL RT-PCR Negative (Negative); Influenza B QL RT-PCR Negative (Negative); RSV RNA, RT-PCR Negative (Negative); SARS-CoV-2 RNA PCR Negative (Negative)
[2025-08-27] MEDS: RIVAROXABAN 20 MG TABLET PO (00:02)
[2025-08-27 00:22] VITALS: BP 140/60; PULSE 66; RESP 18; O2SAT 98
[2025-08-27 00:26] LABS: Anion Gap 4 mmol/L (4-12); Blood Urea Nitrogen 20 mg/dL (7-17); Calcium 8.6 mg/dL (8.4-10.2); Carbon Dioxide 26 mmol/L (22-30); Chloride 100 mmol/L (98-107); Estimated CRCL calculation 38 ml/min; Estimated Glomerular Filt Rate 44; Glucose 96 mg/dL (65-110); Potassium 3.4 mmol/L (3.4-5.0); Sodium 130 mmol/L (137-145)
[2025-08-27 01:38] VITALS: BP 125/93; PULSE 62; RESP 18; O2SAT 100
== END 2025-08-27 01:38 | disposition home or self-care (01) ==
PROVIDERS: Emergency Provider Physician Assistant; PCP Nurse Practitioner
DX: I48.92 Unspecified atrial flutter (principal); N17.9 Acute kidney failure, unspecified; F41.9 Anxiety disorder, unspecified; I10 Essential (primary) hypertension; E78.5 Hyperlipidemia, unspecified; K21.9 Gastro-esophageal reflux disease without esophagitis; E03.9 Hypothyroidism, unspecified
CPT/HCPCS: 36415; 71046; 71275; 80048; 80053; 83690; 84443; 84484; 85025; 85380; 85610; 85730; 87637; 93005; 96360; 96361; 99284; A9270; J7040; Q9967

== ENCOUNTER 2025-09-09 08:37 | Outpatient (CLI) | payer MEDICARE, SELFPAY ==
--- OUTSIDE RECORDS SUMMARY | 2025-09-09 08:55 | XMS_ITS | Clinical Summary ---
Author Organization [facility] Address [address] Ramirez: Epic Prelude ADT BAMBI ZAMAN [id number] Care Team Providers Care Charger Operator Name Role Phone Unavailable Primary Care [...]
[2025-09-09 10:07] LABS: Hematocrit 37.7 % (37.0-47.0); Hemoglobin 12.7 g/dL (12.0-15.0); Mean Corpuscular HGB Conc 33.7 g/dl (32-36); Mean Corpuscular Hemoglobin 32.9 pg (26-34); Mean Corpuscular Volume 97.7 fl (80-100); Platelet Count Result 280 k/mm3 (150-375); Red Blood Count 3.86 M/mm3 (4.2-5.4); White Blood Count 8.3 K/mm3 (4.5-10.0)
== END 2025-09-09 08:38 | disposition home or self-care (01) ==
LOC: ANHLAB 08:39
PROVIDERS: PCP Nurse Practitioner; Visit Provider Nurse Practitioner
DX: I10 Essential (primary) hypertension (principal)
CPT/HCPCS: 36415; 85027

== ENCOUNTER 2025-09-19 08:08 | Outpatient (CLI) | payer MEDICARE, SELFPAY ==
--- NOTE | ~2025-09-19 | NM_ITS ---
EXAMINATION: NM cammie stress w perfusion DATE: 09/19/2025 11:18 FUNDER INDICATION: Paroxysmal atrial fibrillation TECHNIQUE: Rest images were obtained following intravenous administration of 10.6 mCi Tc99m tetrofosmin (Myoview). The patient was infused intravenously with Lexiscan (regadenoson). Then, 31.9 mCi Tc99m tetrofosmin (Myoview) was administered intravenously, and stress images were obtained. Data was joe nstructed into short axis and horizontal and vertical long axis SPECT images. Gated SPECT images were also obtained. COMPARISON: None. FINDINGS: There is no definite reversible or fixed perfusion abnormality to suggest ischemia or infarction. There is no segmental wall motion abnormality. Left ventricular ejection fraction measures 72%. IMPRESSION: 1. No definite ischemia or infarct. 2. Normal left ventricular ejection fraction measuring 72%. Reviewed, dictated and finalized at location I. ER
--- NOTE | 2025-09-19 08:37 | EST_ITS ---
Patient Info Name: Xochitl Lew Age: 79 years : 1945 Gender: Female Ht: 67 in Wt: 174 lbs BSA: 1.95 m2 HR: 88 bpm BP: 120 / 73 mmHg Exam Date: 09/19/2025 8:37 AM Patient Status: O Admit Date: 09/19/2025 Exam Type: CA stress cammie w NM A regadenoson stress test was performed. Staff Referring Physician: Viraj Browning DO Attending Provider: Viraj Browning DO Exercise Technologist: Tuyet Proctor Exercise Physician: Viraj Browning DO Summary 1. 1. Negative lexiscan stress test for ischemic ST changes by ECG criteria. 2. 2. Stable hemodynamics throughout the test. 3. 3. Nuclear scan to follow and will be reported separately. Please correlate with it. 4. 4. Patient informed of the above results. Protocol: Lexiscan Stress ECG Details Stage: REST Duration (min): 1 min : 1 sec HR (bpm): 86 SBP (mmHg): 120 DBP (mmHg): 73 Stage: REST Duration (min): 5 min : 14 sec HR (bpm): 108 SBP (mmHg): 120 DBP (mmHg): 73 Stage: STAGE 1 Duration (min): 1 min : 0 sec HR (bpm): 128 SBP (mmHg): 120 DBP (mmHg): 73 Stage: RECOVERY Duration (min): 1 min : 0 sec HR (bpm): 113 SBP (mmHg): 115 DBP (mmHg): 75 Stage: RECOVERY Duration (min): 2 min : 0 sec HR (bpm): 105 SBP (mmHg): 115 DBP (mmHg): 75 Stage: RECOVERY Duration (min): 3 min : 0 sec HR (bpm): 102 SBP (mmHg): 119 DBP (mmHg): 72 Stage: RECOVERY Duration (min): 3 min : 47 sec HR (bpm): 100 SBP (mmHg): 119 DBP (mmHg): 72 Rest HR: 108 bpm Peak HR: 132 bpm Rest Sys BP: 120 mmHg Peak Sys BP: 119 mmHg Max Pred HR: 141 bpm % Max Pred HR: 94 % Target HR: 120 bpm Max RPP: 15,708 bpm*mmHg Termination Reason: Completed protocol Cardiac Symptoms: Shortness of breath Total Time: 1 min : 0 sec Rest Logan BP: 73 mmHg Peak Logan BP: 72 mmHg Total Dose: 0.4 mg Resting ECG Atrial fibrillation. Stress ECG No ST changes. Arrhythmias No other arrhythmias. Report Signatures
== END 2025-09-19 08:09 | disposition home or self-care (01) ==
PROVIDERS: PCP Nurse Practitioner; Visit Provider Internal Medicine Cardiovascular Disease
DX: I48.0 Paroxysmal atrial fibrillation (principal)
CPT/HCPCS: 78452; 93017; A9502; J2785